=== PATIENT | female | born 1995 | race Caucasian/White ===

== ENCOUNTER 2022-10-07 12:14 | Outpatient (CLI) | payer OTHER, SELFPAY ==
--- NOTE | ~2022-10-07 | US_ITS ---
EXAMINATION: US breast RT limited HISTORY: Palpable lump in the upper outer quadrant of the right breast TECHNIQUE: Limited right breast ultrasound was performed. FINDINGS: There is no evidence of focal abnormal cystic or solid mass in the vicinity of the reported palpable abnormality of concern. IMPRESSION: No specific sonographic correlate is identified for the reported palpable abnormality of concern. Fur ther evaluation at this time should be based on clinical assessment. Continued follow-up physical exa mination is recommended. BI-RADS Category 1: Negative Reviewed, dictated and finalized at location A. IMPRESSION: No specific sonographic correlate is identified for the reported palpable abnor mality of concern. Further evaluation at this time should be based on clinical assessment. Continued follow-up physical examination is recommended. BI-RADS Category 1: Negative
== END 2022-10-07 12:15 | disposition home or self-care (01) ==
LOC: ANHIMG 12:21
PROVIDERS: Visit Provider Obstetrics & Gynecology Gynecology
DX: N63.10 Unspecified lump in the right breast, unspecified quadrant (principal)
CPT/HCPCS: 76642

== ENCOUNTER 2023-04-28 15:01 | Outpatient (CLI) | payer OTHER, SELFPAY ==
--- NOTE | ~2023-04-28 | US_ITS ---
EXAMINATION: US OB <=14 wk fetus w TV DATE: 04/28/2023 15:59 INDICATION: First trimester dating TECHNIQUE: Real-time pelvic transabdominal and transvaginal ultrasound was performed. COMPARISON: None. FINDINGS: The uterus measures 8.9 x 4.9 x 6.8 cm. There is an intrauterine gestational sac. A yolk sa c is identified. No definite pole is seen. The mean sac diameter measures 1.4 cm, which correla live with an estimated gestational age of 6 weeks and 1 day(s) (+/-) 3 day(s). The left ovary is not visualized however no left adnexal abnormality is seen. The right ovary measure s 2.1 x 1.1 cm. There is normal vascular flow in the right ovary. There is no free fluid in the pelvi s. IMPRESSION: 1. Intrauterine gestational sac with an estimated gestational age of 6 weeks and 1 day(s) (+/-) 3 day (s) and an estimated delivery date of 12/21/2023 based on mean sac diameter. No definite pole see n which could be due to early . Reviewed, dictated and finalized at location L. ETOLOGY TEACHER IMPRESSION: 1. Intrauterine gestational sac with an estimated gestational age of 6 weeks an d 1 day(s) (+/-) 3 day(s) and an estimated delivery date of 12/21/2023 based on m guillermo sac diameter. No definite pole seen which could be due to early pregn shun.
== END 2023-04-28 15:02 | disposition home or self-care (01) ==
PROVIDERS: Visit Provider Advanced Practice Midwife
DX: Z36.87 Encounter for antenatal screening for uncertain dates (principal); O36.80X0 Pregnancy with inconclusive fetal viability, not applicable or unspecified; Z3A.00 Weeks of gestation of pregnancy not specified
CPT/HCPCS: 76801; 76817

== ENCOUNTER 2023-05-05 09:57 | Outpatient (CLI) | payer OTHER, SELFPAY ==
--- NOTE | ~2023-05-05 | US_ITS ---
EXAMINATION: US OB <=14 wk fetus w TV DATE: 05/05/2023 11:28 INDICATION: Spotting during first trimester TECHNIQUE: Real-time pelvic ultrasound utilizing both a transvaginal and transabdominal probe was pe rformed. The interpreting radiologist was not present for the study. COMPARISON: 04/28/2023 FINDINGS: The uterus measures 7.2 x 4.6 x 5.2 cm. There is an intrauterine gestational sac. A yolk sac and fet al pole are identified. The crown rump length measures 3 mm, which correlates with an estimated gesta tional age of 5 weeks and 6 days. There is no discernible heart motion on the cine grayscale im aging. The right ovary measures 3.3 x 1.8 x 2.3 cm. The left ovary measures 2.5 x 1.3 x 1.9 cm. Vascular justina w seen on color Doppler in both ovaries including prominently at the periphery of a 1.8 cm corpus lut eum cyst in the right ovary. There is no free fluid in the pelvis. IMPRESSION: 1. Intrauterine with single 3 mm pole without discernible heart motion which em phasizes concerning for but not yet diagnostic of failed . The absence of cardiac acti vity 7 days following an initial scan with no embryo and the mean sac diameter of greater than or equ al to 12 mm (mean sac diameter 1.4 cm on 04/28/2023) would however fulfill a secondary ultrasound cri teria for diagnosis of failed . 2. Gestational age by ultrasound of 5 weeks 6 day(s) +/- 4 day(s) with ultrasound estimated date of delivery (TIMOTHY) of 12/30/2023. Reviewed, dictated and finalized at location A. ICAL PROGRAM MANAGER IMPRESSION: 1. Intrauterine with single 3 mm pole without discernible heart motion which emphasizes concerning for but not yet diagnostic of failed . The absence of cardiac activity 7 days following an initial sc an with no embryo and the mean sac diameter of greater than or equal to 12 mm ( mean sac diameter 1.4 cm on 04/28/2023) would however fulfill a secondary ultra sound criteria for diagnosis of failed . 2. Gestational age by ultrasound of 5 weeks 6 day(s) +/- 4 day(s) with ultraso und estimated date of delivery (TIMOTHY) of 12/30/2023.
== END 2023-05-05 09:58 | disposition home or self-care (01) ==
PROVIDERS: Visit Provider Obstetrics & Gynecology Gynecology
DX: O26.891 Other specified pregnancy related conditions, first trimester (principal); Z3A.00 Weeks of gestation of pregnancy not specified
CPT/HCPCS: 76801; 76817

== ENCOUNTER 2023-10-15 15:16 | Outpatient (CLI) | payer MEDICAID, SELFPAY ==
--- NOTE | ~2023-10-15 | US_ITS ---
EXAMINATION: US OB transvaginal INDICATION: History or SAB TECHNIQUE: Sonography of the pelvis was performed by transvaginal technique. COMPARISON: None. RESULT: Uterus: 9.3 x 5.6 x 6.5 cm. Anteverted. Homogenous myometrium. Intrauterine gestational sac: Single present. Yolk sac: 0.4 cm. Embryo: Single present. New Era rump length: 0.44 cm, corresponding gestational age 6 weeks, 1 days. Gestational heart rate: present 125 bpm. Subgestational hematoma: Absent . Right ovary: 3.1 x 1.8 x 3.0 cm. Vascular flow is present. No adnexal mass. Left ovary: 2.3 x 1.4 x 1.8 cm. Vascular flow is present. No adnexal mass. Pelvis free fluid: None. IMPRESSION: Single, live intrauterine gestation. Estimated Gestational Age: 6 weeks, 1 days by crown rump length. TIMOTHY by ultrasound 06/08/2024. Reviewed, dictated and finalized at location K. IMPRESSION: Single, live intrauterine gestation. Estimated Gestational Age: 6 weeks, 1 days by crown rump length. TIMOTHY by ultras ound 06/08/2024.
== END 2023-10-15 15:17 ==
PROVIDERS: PCP Obstetrics & Gynecology Gynecology; Visit Provider Obstetrics & Gynecology Gynecology
DX: O09.299 Supervision of pregnancy with other poor reproductive or obstetric history, unspecified trimester (principal); Z3A.01 Less than 8 weeks gestation of pregnancy
CPT/HCPCS: 76817

== ENCOUNTER 2024-01-07 15:30 | Outpatient (CLI) | payer OTHER, SELFPAY ==
--- NOTE | ~2024-01-07 | US_ITS ---
EXAMINATION: US OB /maternal detail DATE: 01/07/2024 16:36 INDICATION: anatomic survey. TECHNIQUE: Real-time ultrasound of the pelvis was performed. COMPARISON: Ultrasound 10/15/2023 FINDINGS: There is a single living fetus in variable presentation. The placenta is posterior, 2.4 cm from the cervix. heart rate is 141 beats per minute (bpm). The amniotic fluid index is 13.1 cm, which is normal. The following biometric data were obtained: Biparietal diameter (BPD): 4.1 cm; head circumference (HC): 16.0 cm; abdominal circumference (AC): 13 .3 cm; femur length (FL): 2.6 cm. These measurements are concordant. Estimated weight is 240 g +/- 36 g, which correlates with the 54th percentile when 06/07/24 is u sed as estimated date of delivery. As single measurements, these parameters are each equal to the following estimated gestational ages: BPD: 18 weeks 3 days. HC: 18 weeks 6 days. AC: 18 weeks 6 days. FL: 18 weeks 0 days. estimated gestational age based solely on measurements from this exam is 18 weeks 4 days +/- 1 weeks 2 days. The cerebral ventricles, cerebellum, cisterna magna, nuchal fold, and spine are normal. The heart is normal. The diaphragm, stomach, kidneys, and bladder are normal. There are two umbilical arteries to yield a 3-vessel cord. The cord insertion is normal. IMPRESSION: 1. Single living fetus in variable presentation. 2. Estimated weight is 240 g +/- 36 g, which correlates with the 54th percentile when 06/07/24 is used as estimated date of delivery. Note that estimated date of delivery based on the ultrasound f rom 10/15/2023 would be 06/08/2024. Reviewed, dictated and finalized at location A. IMPRESSION: 1. Single living fetus in variable presentation. 2. Estimated weight is 240 g +/- 36 g, which correlates with the 54th pe rcentile when 06/07/24 is used as estimated date of delivery. Note that estimate d date of delivery based on the ultrasound from 10/15/2023 would be 06/08/2024.
== END 2024-01-07 15:31 | disposition home or self-care (01) ==
LOC: ANHIMG 15:31
PROVIDERS: PCP Obstetrics & Gynecology Gynecology; Visit Provider Obstetrics & Gynecology Gynecology
DX: Z36.9 Encounter for antenatal screening, unspecified (principal); Z3A.18 18 weeks gestation of pregnancy
CPT/HCPCS: 76805

== ENCOUNTER 2024-03-15 15:12 | Outpatient (CLI) | payer OTHER, SELFPAY ==
--- NOTE | ~2024-03-15 | US_ITS ---
EXAMINATION: US OB follow up DATE: 03/15/2024 16:21 INDICATION: Low-lying placenta TECHNIQUE: Real-time ultrasound of the pelvis was performed. The interpreting radiologist was not pre sent for the study. COMPARISON: None. FINDINGS: There is a single living fetus in vertex presentation. The placenta is posterior and not low-lying w ith caudal margin 5.2 cm from the internal cervical os. Normal cervical length of 4.2 cm. heart rate is 137 beats per minute (bpm). The amniotic fluid index is 16.4 cm, which is normal (5th%-95%: 9.4-22.8 cm at 28 weeks estimated gestational age). The following biometric data were obtained: BPD: 7.3 cm -> 29 weeks 2 days Head circumference: 28.1 cm -> 30 weeks 6 days Abdominal circumference: 24.0 cm -> 28 weeks 2 days Femur length: 5.1 cm -> 27 weeks 2 days These measurements are concordant. Head circumference to abdominal circumference ratio: 1.17 (normal range 0.99-1.21). Estimated weight: 1195 g (+/-) 179 g or 2 lbs. 10 oz. (+/-) 6 oz. IMPRESSION: 1. Single living fetus in vertex presentation with heart rate of 137 bpm. 2. Normal amniotic fluid index of 16.4 cm. 3. Estimated weight is 46th percentile by Hadlock criteria when 06/07/2024 is used as the estima cathie date of delivery (TIMOTHY). Please correlate with clinical information or earlier ultrasounds for mos t accurate TIMOTHY. 4. Posterior placenta which is not low-lying with caudal margin 5.2 cm from the internal cervical os. Reviewed, dictated and finalized at location A. IMPRESSION: 1. Single living fetus in vertex presentation with heart rate of 137 bpm. 2. Normal amniotic fluid index of 16.4 cm. 3. Estimated weight is 46th percentile by Hadlock criteria when 06/07/2024 is used as the estimated date of delivery (TIMOTHY). Please correlate with clinica l information or earlier ultrasounds for most accurate TIMOTHY. 4. Posterior placenta which is not low-lying with caudal margin 5.2 cm from the internal cervical os.
== END 2024-03-15 15:13 | disposition home or self-care (01) ==
PROVIDERS: PCP Obstetrics & Gynecology Gynecology; Visit Provider Advanced Practice Midwife
DX: O44.43 Low lying placenta NOS or without hemorrhage, third trimester (principal); Z3A.00 Weeks of gestation of pregnancy not specified
CPT/HCPCS: 76816

== ENCOUNTER 2024-05-01 14:45 | Outpatient (CLI) | payer OTHER, SELFPAY ==
--- NOTE | ~2024-05-01 | US_ITS ---
EXAMINATION: US OB follow up DATE: 05/01/2024 17:27 INDICATION: Size greater than dates. TECHNIQUE: Real-time ultrasound of the pelvis was performed. COMPARISON: Ultrasound 03/15/2024, 10/15/2023 FINDINGS: There is a single living fetus in vertex presentation. The placenta is fundal and posterior. h eart rate is 163 beats per minute (bpm). The cervical length is 3.9 cm on transabdominal images, whic h is normal. The deepest vertical pocket is 7.2 cm which is normal. The following biometric data were obtained: Biparietal diameter (BPD): 8.8 cm; head circumference (HC): 31.8 cm; abdominal circumference (AC): 31 .2 cm; femur length (FL): 6.8 cm. These measurements are concordant. Estimated weight is 2627 g +/- 394 g, which correlates with the 62nd percentile when 06/07/24 is used as estimated date of delivery. As single measurements, these parameters are each equal to the following estimated gestational ages: BPD: 35 weeks 5 days. HC: 35 weeks 6 days. AC: 35 weeks 1 days. FL: 35 weeks 0 days. estimated gestational age based solely on measurements from this exam is 35 weeks 3 days +/- 2 weeks 3 days. IMPRESSION: 1. Single living fetus in vertex presentation. 2. Estimated weight is 2627 g +/- 394 g, which correlates with the 62nd percentile when 5 is used as estimated date of delivery. Note that estimated date of delivery based on the ultrasound from 10/15/2023 would be 06/08/2024. Reviewed, dictated and finalized at location A. PROFESSIONAL INTERPRETER IMPRESSION: 1. Single living fetus in vertex presentation. 2. Estimated weight is 2627 g +/- 394 g, which correlates with the 62nd percentile when 06/07/24 is used as estimated date of delivery. Note that estima cathie date of delivery based on the ultrasound from 10/15/2023 would be 06/08/2024.
== END 2024-05-01 14:46 | disposition home or self-care (01) ==
PROVIDERS: PCP Obstetrics & Gynecology Gynecology; Visit Provider Advanced Practice Midwife
DX: O36.63X0 Maternal care for excessive fetal growth, third trimester, not applicable or unspecified (principal); Z3A.35 35 weeks gestation of pregnancy
CPT/HCPCS: 76816

== ENCOUNTER 2024-05-23 23:41 | Inpatient (IN) | payer OTHER, SELFPAY ==
[2024-05-24] VITALS (160 sets, daily range): BP systolic 55–134; BP diastolic 22–83; PULSE 58–130; RESP 14–18; TEMP 36.4–36.8; O2SAT 92–100; BMI 39.0
[2024-05-24] MEDS: ONDANSETRON INJ 4 MG/2 ML VIAL IV PUSH (01:07)
[2024-05-24 01:12] LABS: Basophils Absolute Auto 0.1 K/mm3 (0.0-0.1); Basophils Percent Auto 0.5 % (0.2-1.2); Eosinophils Absolute Auto 0.2 K/mm3 (0-0.3); Eosinophils Percent Auto 1.3 % (0-4.4); Hematocrit 34.4 % (37.0-47.0); Hemoglobin 12.2 g/dL (12.0-15.0); Immature Granulocyte Absolute 0.17 K/mm3 (0.00-0.031); Immature Granulocyte Percent A 1.1 % (0-0.5); Lymphocytes Absolute Auto 4.44 K/mm3 (0.9-3.2); Lymphocytes Percent Auto 27.8 % (18.3-44.2); Mean Corpuscular HGB Conc 35.5 g/dl (32-36); Mean Corpuscular Hemoglobin 33.2 pg (26-34); Mean Corpuscular Volume 93.7 fl (80-100); Mean Platelet Volume 10.1 fl (7.4-10.4); Monocytes Absolute Auto 1.2 K/mm3 (0.1-0.6); Monocytes Percent Auto 7.5 % (2.6-8.5); Neutrophils Absolute Auto 9.9 K/mm3 (1.3-6.7); Neutrophils Percent Auto 61.8 % (45.5-73.1); Platelet Count Result 264 k/mm3 (150-375); Red Blood Count 3.67 M/mm3 (4.2-5.4); Red Cell Distribution Width 13.2 % (11.5-14.5)
--- NOTE | 2024-05-24 01:15 | LDADM ---
This patient, Alley Powell, was admitted to Labor/Delivery/Recovery 106 on 05/23/24 at 23:41. Plans for labor, pain management and were discussed with patient. Patient/family oriented to hospital policies and general routines including ID bracelet, bed and alarms, visiting hours, pain management, procedures, bathroom and other care routines, personal items, smoking policy, room service/diet and guest tray routines, infant security routines, and visiting hours. Patient/Family are encouraged to report perceived risks to care and to ask questions if they do not understand what they are told or what they should do. See OBIX for further documentation.
[2024-05-24 01:44] LABS: Rapid Plasma Reagin Non-Reactive (NonReactive)
[2024-05-24 02:04] LABS: HIV 1/2 Ab P24 Ag Result Negative (Negative)
[2024-05-24] MEDS: LACTATED RINGERS 1,000 ML 125 ML IV CONT ×2 (03:10→04:20)
[2024-05-24] MEDS: fentaNYL CITRATE INJ (*CRX) 100 MCG/2 ML VIAL 50 MCG IV PUSH (03:51)
--- NOTE | 2024-05-24 04:26 | WPDANESEPP ---
Anes - Eval Pre Procedure Procedure: labor pain management Date/Time: 05/24/24 04:26 Surgeon: Tl Preop Diagnosis: pain during labor Pre Op Diagnosis: Leaking, contractions Patient Data Age: 28 Gender: F Height: 1.6 m Weight: 100 kg Last Vital Signs Temp 97.6 F 05/24/24 04:20 Pulse 74 05/24/24 04:00 BP 103/58 L 05/24/24 04:00 Pulse Ox 99 05/24/24 04:23 O2 Del Method Room Air 05/24/24 01:12 Allergies Allergy/AdvReac Type Severity Reaction Status Date / Time No Known Allergies Allergy Verified 05/24/24 01:26 Home Medications ?Medication ?Instructions ?Recorded ?Confirmed ?Type cholecalciferol (vitamin D3) 125 5,000 unit PO DAILY 05/16/24 05/16/24 History mcg (5,000 unit) tablet (Vitamin D3) vit no.95-ferrous 1 tablet PO DAILY 05/16/24 05/16/24 History fumarate 28 mg-folic acid 800 mcg tablet () sertraline 50 mg tablet (Zoloft) 50 mg PO DAILY 05/16/24 05/16/24 History Laboratory Tests 05/24/24 00:33 WBC 16.0 H K/mm3 (4.5-10.0) RBC 3.67 L M/mm3 (4.2-5.4) Hgb 12.2 g/dL (12.0-15.0) Hct 34.4 L % (37.0-47.0) MCV 93.7 fl (80-100) MCH 33.2 pg (26-34) MCHC 35.5 g/dl (32-36) RDW 13.2 % (11.5-14.5) Plt Count 264 k/mm3 (150-375) MPV 10.1 fl (7.4-10.4) Immature Gran % (Auto) 1.1 H % (0-0.5) Neut % (Auto) 61.8 % (45.5-73.1) Lymph % (Auto) 27.8 % (18.3-44.2) Antelope % (Auto) 7.5 % (2.6-8.5) Eos % (Auto) 1.3 % (0-4.4) Baso % (Auto) 0.5 % (0.2-1.2) Lymph # (Auto) 4.44 H K/mm3 (0.9-3.2) Antelope # (Auto) 1.2 H K/mm3 (0.1-0.6) Eos # (Auto) 0.2 K/mm3 (0-0.3) Baso # (Auto) 0.1 K/mm3 (0.0-0.1) Abs Immat Gran (auto) 0.17 H K/mm3 (0.00-0.031) Absolute Neuts (auto) 9.9 H K/mm3 (1.3-6.7) Absolute Nucleated RBC 0.000 K/mm3 (0.0-0.012) Nucleated RBC % 0.0 % (0.0-0.2) RPR Non-reactive (NonReactive) HIV 1&2 Ab/P24 Ag 4thGn Negative (Negative) Blood Type A Positive Antibody Screen Negative Patient hx anesthesia problems: none Family hx anesthesia problems: none Prior surgeries: appy, tonsillectomy. per pt report: previous epidural required 3 attempts due to pt's scoliosis Results Review: All pre-operative results and documents have been reviewed as part of the pre-operative evaluation. [facility] Family History Family History Other No pertinent family history Social History Social History Smoking status: Never smoker Substance use: never Do You Feel Safe in your Home?: Yes Lack of Transportation: No Lack of Food: Never True Current Housing: I Have Housing Concerned About Future Housing: No Difficulty Paying Gas/Electric Bills: No Difficulty Paying for Meds: No Currently Unemployed: No Education: Associate Degree Difficulty w/ Childcare or Family Care: No Spiritual care concerns: No Exam Day of Procedure 05/24/24 04:26
[2024-05-24] MEDS: OXYTOCIN 30 UNITS/NS 500 ML 30 UNITS/500 ML BAG IV CONT (07:30)
--- NOTE | 2024-05-24 07:44 | WPDOBADMIT ---
Obstetrics - Admit Note Admission Note: record reviewed. No pertinent additions to the history and/or any subsequent changes in the physical findings that are not consistent with the expected course of the were found. Additions to the history and/or subsequent changes in the physical findings follow. Here with SROM in labor. Last check by RN 5 cm. Patient with epidural and was sleeping so I did not wake patient. FHTs Cat I.
--- NOTE | 2024-05-24 09:30 | PM.OBPRVD ---
OB - Vaginal Delivery Note Procedure Delivery date: 05/24/24 Induction method: None Delivery augmentation: Pitocin Delivery monitor: External FHT and External Uterine Route of delivery: Episiotomy description: None Laceration Description: Periurethral (clitoral wright) and Superficial Delivery repair: vicryl (3-0 on sh) Specimen: No Quantitative Blood Loss (ml): 50 Anesthesia type: Local Disposition: Floor Complications: No immediate complications Baby Date of : 05/24/24 Gestational Age by Date: 38 Infant gender: Male presentation: vertex position: Right Occiput Anterior Placenta delivery description: Spontaneous Cord Vessel Description: 3 Vessels and Delayed Cord Clamping score one minute: 8 score five minutes: 9
--- NOTE | 2024-05-24 09:31 | P.DS_ITS ---
DS: Admitting Diagnosis Discharge Date 05/25/24 Admitting Diagnosis IUP 38 wks SROM in labor DS: Discharge Diagnosis Discharge Diagnosis (1) (normal spontaneous vaginal delivery): Code(s): O80 - Encounter for full-term uncomplicated delivery Status: Acute OB - DS: Summary OB Procedures : Ultrasound OB Procedures Intrapartum: Spontaneous Vag Delivery OB Procedures: : None Peripartum Data Delivery Method: Natural Vaginal Laceration Description: Periurethral (clitoral wright) and Superficial Episiotomy description: None complications: none Status at Discharge Functional status at discharge: independent ambulation Overall status at discharge: patient is progressing back to baseline Time Spent with Patient Time attestation: Total time spent providing and/or coordinating discharge services: DS: Data Data Completed and Pending Labs on day of discharge: Labs from last 24 hours 05/24/24 00:33 WBC 16.0 H RBC 3.67 L Hgb 12.2 Hct 34.4 L MCV 93.7 MCH 33.2 MCHC 35.5 RDW 13.2 Plt Count 264 MPV 10.1 Immature Gran % (Auto) 1.1 H Neut % (Auto) 61.8 Lymph % (Auto) 27.8 Guthrie % (Auto) 7.5 Eos % (Auto) 1.3 Baso % (Auto) 0.5 Lymph # (Auto) 4.44 H Guthrie # (Auto) 1.2 H Eos # (Auto) 0.2 Baso # (Auto) 0.1 Abs Immat Gran (auto) 0.17 H Absolute Neuts (auto) 9.9 H Absolute Nucleated RBC 0.000 Nucleated RBC % 0.0 RPR Non-reactive HIV 1&2 Ab/P24 Ag 4thGn Negative Blood Type A Positive Antibody Screen Negative Discharge Plan Discharge Attending physician on discharge: Nury Boothe Discharging Clinician: uNry oBothe Anticipated Discharge Date/Time: 05/26/24 09:32 Patient Disposition: Home, Self-Care Activity: may shower and pelvic rest Diet: regular Patient Instructions: Antibiotic Form Patient Language: Palestinian Stand Alone Forms: General Discharge Information Follow-up/Referrals: Nury Boothe MD [Physician] - 6 Weeks Discharge Medications: New norethindrone (contraceptive) 0.35 mg tablet 0.35 mg PO DAILY Qty: 84 3RF Rx Instructions: start in 3 weeks Continued PNV cmb#95-ferrous fumarate-FA [] 28 mg iron- 800 mcg tablet 1 tablet PO DAILY cholecalciferol (vitamin D3) [Vitamin D3] 125 mcg (5,000 unit) tablet 5,000 unit PO DAILY sertraline [Zoloft] 50 mg tablet 50 mg PO DAILY Date of admission: 05/23/24 23:41 Primary Care Provider: UNKNOWN,DOCTOR Admitting Provider: Nury Boothe Attending physician on admission: uNry Boothe Condition: Stable
[2024-05-24] MEDS: OXYTOCIN 30 UNITS/NS 500 ML 30 UNITS/500 ML BAG 125 UNITS IV CONT (10:03)
[2024-05-24] MEDS: IBUPROFEN 600 MG TABLET PO ×2 (10:07→16:46)
--- NOTE | 2024-05-24 11:55 | PC.NURSE ---
Call received from Nursery RN for assistance with latch in Labor and Delivery. RN expressed that patient has flat, inverted nipples. Introductions were made, then consulted with patient to assess needs related to . Upon entering room, was swaddled and vigorously sucking on a pacifier. Mother stated that she had a nipple shield from home that she would like to try to use. Explained to mother that it is possible for infant to latch and maintain a feeding without a nipple shield with inverted nipples. After explaining this to pt, she would still like to attempt with a nipple shield. Mother is able to hand express drops of colostrum, nipple shield was placed on the left breast and was placed in the cross cradle position and latched optimally. Vigorous sucking noted as well as swallows. Mother agreed to remove the nipple shield and attempt to nurse infant without it. was able to latch to the left breast in cross cradle position and maintain for a 10 minute feeding.
[2024-05-24] MEDS: BENZOCAINE 20% AER SPR (*SP) 56 GM CAN 1 SPRAY TOPICAL (12:00)
[2024-05-24] MEDS: WITCH HAZEL 40 PADS 1 PAD TOPICAL (12:00)
--- NOTE | 2024-05-24 13:35 | OBPPTRN ---
Patient transferred to post room #288 via (wheelchair ). Support person present. Oriented to unit, room, information board, rooming in, admission packet and security measures. Patient verbalizes understanding.
[2024-05-24] MEDS: ACETAMINOPHEN 325 MG TABLET 650 MG PO ×2 (16:46→22:17)
[2024-05-24] MEDS: SERTRALINE HCL 50 MG TABLET PO (20:55)
[2024-05-24] MEDS: IBUPROFEN 600 MG TABLET (22:17)
[2024-05-25] MEDS: ACETAMINOPHEN 325 MG TABLET 650 MG PO ×2 (04:37→10:31)
[2024-05-25] MEDS: IBUPROFEN 600 MG TABLET PO ×2 (04:38→10:32)
[2024-05-25 06:20] LABS: Hematocrit 35.3 % (37.0-47.0); Hemoglobin 12.1 g/dL (12.0-15.0)
--- NOTE | 2024-05-25 07:52 | P.PNOB_ITS ---
OB - PN: Subj Subjective Date/time seen: 05/25/24 07:52 Patient comments: no complaints and pain well controlled baby status: doing well OB - PN: Obj Data Labs 05/25/24 04:29 Labs: Laboratory Results - last 24 hr 05/25/24 04:29 Hgb 12.1 Hct 35.3 L OB - PN A/P Plan day: 1 Plan: routine care, discharge home, follow up 6 weeks and other (micronor for bc) Time Spent With Patient Time: Total time spent is greater than 50% in coordination of care (as documented) at patient's floor/unit and/or counseling patient: Exam 2 : Bimanual exam- vagina & uterus: other (Uterus firm, nt @U)
--- NOTE | 2024-05-25 08:41 | PC.NURSE ---
Breast pump was provided overnight due to maternal request. Upon entering room, mother was pumping. Mother is able to pump 4-5 oz per pump session and intends to feed this to infant along with supplementation (Similac Sensitive). Flange size is appropriate and mother denies any pain or discomfort while pumping. Mother will call this RN for any questions or assistance with feedings.
[2024-05-25] MEDS: DOCUSATE SODIUM 100 MG CAPSULE PO (08:45)
[2024-05-25] MEDS: MULTIVIT/MIN/PREN/FOL AC/IRON TABLET 1 TAB PO (08:45)
[2024-05-25 09:13] VITALS: BP 111/75; PULSE 72; RESP 16; TEMP 36.4; O2SAT 99
--- NOTE | 2024-05-25 14:29 | WPDANLDPN2 ---
Anes-Prog Note L&D Date/Time: 05/25/24 14:29 Neuro status: Neuro function grossly intact. Vital Signs: Last Vital Signs Temp 36.4 C L 05/25/24 09:13 Pulse 72 05/25/24 09:13 Resp 16 05/25/24 09:13 BP 111/75 05/25/24 09:13 Pulse Ox 99 05/25/24 09:13 O2 Del Method Room Air 05/24/24 15:50 Pain score (VAS): 0 I/O: Intake & Output 05/24/24 05/25/24 05/25/24 23:59 07:59 15:59 Intake Total 200 Balance 200 Patient feedback: Patient satisfied with anesthetic care.
[2024-05-26 14:16] VITALS: BP 105/72; PULSE 78; RESP 18; TEMP 36.9; O2SAT 100
--- OUTSIDE RECORDS SUMMARY | 2024-05-31 00:14 | XMS_ITS | Encounter Summary ---
Author Organization [facility] Address [address] [place] [address]. [place], [place] [id number] [place] [id number] Care Team Providers Care Leak Patcher Name Role Phone Juli Montes MD Primary Care Provider [phone] Juli Montes MD Primary Care Provider [phone] Encounter Details Date Type Department Care Team (Late st Contact Info) Description 05/06/2012 Abstract [facility] [address] Naveed Woodall MD [address] [place] [address] Social History Tobacco Use Types Packs/Day Years Used Date Smoking Tobacco: Never Assessed Comments Unknown Sex and Gender Information Value Date Recorded Sex Assigned at Not on file Legal Sex Female 6:14 PM CDT Gender Identity Not on file Sexual Orientation Not on file documented as of this encounter Plan of Treatment Not on file documented as of this encounter Visit Diagnoses Diagnosis Examination Unspecified examination documented in this encounter Care Teams Leak Patcher Relationship Specialty Start Date End Date Juli Montes MD [address] [place] [address] PCP - General 03/13/12 08/16/12 Juli Montes MD [address] [address] PCP - General 08/17/12 07/07/21 documented as of this encounter
--- OUTSIDE RECORDS SUMMARY | 2024-05-31 00:14 | XMS_ITS | Encounter Summary ---
Author Organization [facility] Address [address] [place] [address]. [place], [place] [id number] [place] [id number] Care Team Providers Care Mill Operator Head Name Role Phone Juli Montes MD Primary Care Provider [phone] Juli Montes MD Primary Care Provider [phone] Encounter Details Date Type Department Care Team (Late st Contact Info) Description 10/23/2008 Abstract [place] [address] , Generic Conversion, Social History Tobacco Use Types Packs/Day Years Used Date Smoking Tobacco: Never Assessed Comments Unknown Sex and Gender Information Value Date Recorded Sex Assigned at Not on file Legal Sex Female 6:14 PM CDT Gender Identity Not on file Sexual Orientation Not on file documented as of this encounter Plan of Treatment Not on file documented as of this encounter Visit Diagnoses Not on filedocumented in this encounter Care Teams Mill Operator Head Relationship Specialty Start Date End Date Juli Montes MD [address] [place] [address] PCP - General 03/13/12 08/16/12 Juli Montes MD [address] [place] [address] PCP - General 08/17/12 07/07/21 documented as of this encounter
--- OUTSIDE RECORDS SUMMARY | 2024-05-31 00:14 | XMS_ITS | Encounter Summary ---
Author Organization [facility] Address [address] [place] [address]. [place], [place] [id number] [place] [id number] Care Team Providers Care Marshmallow Machine Operator Name Role Phone Juli Montes MD Primary Care Provider [phone] Juli Montes MD Primary Care Provider [phone] Encounter Details Date Type Department Care Team (Late st Contact Info) Description 03/13/2012 Abstract [facility] [address] [place] [address] Margaux Harper MD [address] [facility] [address] [place] [address] Social History Tobacco Use Types Packs/Day Years Used Date Smoking Tobacco: Never Assessed Comments Unknown Sex and Gender Information Value Date Recorded Sex Assigned at Not on file Legal Sex Female 6:14 PM CDT Gender Identity Not on file Sexual Orientation Not on file documented as of this encounter Plan of Treatment Not on file documented as of this encounter Visit Diagnoses Diagnosis Acute pharyngitis documented in this encounter Care Teams Marshmallow Machine Operator Relationship Specialty Start Date End Date Juli Montes MD [address] [place] [address] PCP - General 03/13/12 08/16/12 Juli Montes MD [address] [phone] PCP - General 08/17/12 07/07/21 documented as of this encounter
--- OUTSIDE RECORDS SUMMARY | 2024-05-31 00:14 | XMS_ITS | Encounter Summary ---
Author Organization [facility] Address [address] [place] [address]. [place], [place] [id number] [place] [address] Care Team Providers Care Field Superintendent Name Role Phone Juli Montes MD Primary Care Provider [phone] Encounter Details Date Type Department Care Team (Late st Contact Info) Description 08/17/[address] [facility] [address] [place], [place] [id number] Renate Dye, REGIONAL TELECOMMUNICATIONS SPECIALIST [address] [facility] [address] [place] [address] Social History Tobacco Use Types Packs/Day Years Used Date Smoking Tobacco: Never Assessed Comments Unknown Sex and Gender Information Value Date Recorded Sex Assigned at Not on file Legal Sex Female 6:14 PM CDT Gender Identity Not on file Sexual Orientation Not on file documented as of this encounter Plan of Treatment Not on file documented as of this encounter Visit Diagnoses Diagnosis Urinary tract infection Urinary tract infection, site not specified documented in this encounter Care Teams Field Superintendent Relationship Specialty Start Date End Date Juli Montes MD [address] [facility] [address] [place] [address] PCP - General 08/17/12 07/07/21 documented as of this encounter
--- OUTSIDE RECORDS SUMMARY | 2024-05-31 00:14 | XMS_ITS | Encounter Summary ---
Author Organization [facility] Address [address] [place] [address]. [place], [place] [id number] [place] [address] Care Team Providers Care Gill Tender Name Role Phone None, Provider Primary Care Provider Juli Burnham MD Unavailable Encounter Details Date Type Department Care Team (Latest Contact Info) Description 07/08/2021 Travel Social History Tobacco Use Types Packs/Day Years Used Date Smoking Tobacco: Never Assessed Comments Unknown Sex and Gender Information Value Date Recorded Sex Assigned at Not on file Legal Sex Female 6:14 PM CDT Gender Identity Not on file Sexual Orientation Not on file COVID-19 Exposure Response Date Recorded In the last 10 days, have yo u been in contact with someone who was confirmed or suspected to have Coronavirus/COVID-19? No / Unsure 07/08/2021 10:58 AM PAPERHANGER documented as of this encounter Plan of Treatment Not on file documented as of this encounter Visit Diagnoses Not on filedocumented in this encounter Care Teams Gill Tender Relationship Specialty Start Date End Date None, Provider, PCP - General 07/08/21 Juli Montes MD [address] [address] 07/08/21 documented as of this encounter
--- OUTSIDE RECORDS SUMMARY | 2024-05-31 00:14 | XMS_ITS | Encounter Summary ---
Author Organization [facility] Address [address] [place] [address]. [place], [place] [id number] [place] [address] Care Team Providers Care Pensionholder Information Clerk Name Role Phone None, Provider Primary Care Provider Juli Burnham MD Unavailable Encounter Details Date Type Department Care Team (Latest Contact Info) Description 07/08/2021 11:03 AM GENERAL OPERATIONS AGENT - 07/08/2021 11:04 AM GENERAL OPERATIONS AGENT Hospital Encounter [facility] Care [address] [place] [address] Jackie Souza, [facility] [address] [address] Discharge Disposition: Home or Self Care (Routine Discharge) Social History Tobacco Use Types Packs/Day Years [...] Coronavirus/COVID-19? No / Unsure 07/08/2021 10:58 AM GENERAL OPERATIONS AGENT documented as of this encounter ED Notes * Parisa Swanson RN - 07/08/2021 11:51 AM CST Downtime: see paper chart RAL OPERATIONS AGENT * Parisa Swanson RN - 07/08/2021 11:01 AM CST Downtime: See paper chart RAL OPERATIONS AGENT * CURLY Gurrola - 07/08/2021 10:59 AM CST Refer to downtime charting CURLY Gurrola 07/08/21 1059 RAL OPERATIONS AGENT documented in this encounter Plan of Treatment Not on file documented as of this encounter Visit Diagnoses Not on filedocumented in this encounter Active and Recently Administered Medications Care Teams Pensionholder Information Clerk Relationship Specialty Start Date End Date None, Provider, PCP - General 07/08/21 Juli Montes MD [address] [address] 07/08/21 documented as of this encounter
--- OUTSIDE RECORDS SUMMARY | 2024-05-31 00:14 | XMS_ITS | Clinical Summary ---
Author Organization [facility] Address [address] [place] [address]. [place], [place] [phone] [place] [address] Care Team Providers Care Forest Fire Officer Name Role Phone None, Provider Primary Care Provider Juli Burnham MD Unavailable Social History Tobacco Use Types Packs/Day Years Used Date Smoking Tobacco: Never Assessed Comments Unknown Sex and Gender Information Value Date Recorded Sex Assigned at Not on file Legal Sex Female 6:14 PM CDT Gender Identity Not on file Sexual Orientation Not on file Plan of Treatment Health Maintenance Due Date Last Done Comments Cervical Cancer Screening Pa p Smear (Age 21 to 29) Every 3 Years 1994 Cervical Cancer Screening 1994 Annual Physical 1997 Hepatitis C 2012 DTaP, Tdap and Td Vaccines ( 1 - Tdap) 2013 Hepatitis B Vaccines (1 of 3 - 19+ 3-dose series) 2013 COVID-19 Vaccine (2023-2 5 season) 2024 08/30/2020, 08/02/2020 Influenza Adult (#1) 2024 HPV Vaccines Aged Out No longer eligi ble based on patient's age to complete this topic Meningococcal Vaccine Aged Out No kia kamran eligible based on patient's age to complete this topic Pneumococcal Vaccine: Pediatrics (0 to 5 Years) and At-Risk Patients (6 to 64 Years) Aged Out No longer eligible b ased on patient's age to complete this topic RSV Immunizations Under 20 Months Aged Out No longer eligible b ased on patient's age to complete this topic Insurance [place] Care Teams Forest Fire Officer Relationship Specialty Start Date End Date None, Provider, PCP - General 07/08/21 Juli Montes MD [address] [address] 07/08/21
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
--- OUTSIDE RECORDS SUMMARY | 2024-05-31 00:15 | XMS_ITS | Data Portability ---
Author Organization [facility] [employer], [facility], Bypass Address [address] [place] [address] DR SHEA HALLIE [address] Care Team Providers Care Counter Dish Carrier Name Role Phone [facility] MEDICAL RECORDS Primary Care Provider Assessment No assessment recorded. Plan of Treatment Reminders Order Date Submit Date Provider Last Modified By Organization Details Last Modified Time Details Appointments None record ed. Lab None record ed. Referral None record ed. Procedures None record ed. Surgeries None record ed. Imaging None record ed. Medication Orders None record ed. Patient TargetsNo targets recorded. Patient Instructions Encounter Date Encounter Id Patient Instructions Last Modified By Organization Details Last Modified Time 09/29/2017 [id number] moles: care instructions tparrent Not available 09/29/2017 15:19:44 Reason for Referral None Reported. Problems No Known Problems Procedures Surgical History Date Name Laterality Status Provider Name and Address Organization Details Recorded Time [facility]end[facility] 15:09:10 Imaging Results None recorded. Procedure Notes None recorded. Medical Equipment None Reported. Allergies No known drug allergies Medications Not known to be on any medication Vitals None Recorded Social History Question Answer Notes LastModified by Organizat ion Details LastModified Time Tobacco Smoking Status Current Every Day Smoker Rito villegas [facility] 09/29/2017 15:08:56 What Is Your Level Of Alcohol Consumption? Moderate Information not available 09/29/2017 What Was The Date Of Your Most Recent Tobacco Screening? 09/29/2017 Information not available 12/08/2018 Sex: Unknown Functional Status None recorded. Mental Status None recorded. Family History Relationship Description Onset Age of this Age Resolved Age Notes LastModified by Organization Details LastModified Time Mother Malignant melanoma of skin melano ma, right arm- 2014 Not available 09/29/2017 15:08:49 Maternal Grandfather Myocardial infarction [email or web address] Not available 09/29 15:14:29 Medical History Condition Response Eczema, Hives or other skin conditions N Skin Cancer N Gynecological HistoryNo gynecological history recorded. Obstetrics History GPAL:G 0 P 0 0 0 0 Past Encounters Encounter ID Performer Location Encounter Start Date Encounter Closed Date Diagnosis/Indication Diagnosis SNOMED-CT Code Diagnosis ICD10 Code Diagnosis Note [id number] Ephraim Crowe MD [facility], Dermatolo gy [address] [place] [address] 09/29/2017 14:48:32 09/29/2017 15:37:28 Melanocytic nevus 661554562 D22.39 -Benign appearing nevi evaluated on exam -Reassuran ce provided to patient -No treatment indicated unless lesions change or become symptomati c Neoplasm of skin 5247989 04 D48.5 -Referral for Health Concerns Section Related Observation LastModified by Organization Detai ls LastModified Time None Recorded Concern Status LastModified by Organization Details LastModified Time None Recorded Advance Directives Directive None Recorded Payers Encounter Date Sequence Insurance Name Policy Number Policy Urias Covered Member ID Urias Member ID Guarantor Name 09/29/2017 1 [facility] () Alley Powell [id number] Alley Powell Notes Date Note Type Note Provider Name and Address Organization Details Recorded Time 09/29/2017 text/html 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 Helped/Failed?: no prior tx Problem:skin lesion Location:right side of scalp Quality:flat, smooth, dark brown color to the area Mild/Moderate/S evere:mild itching Days/Weeks/Getachew hs/Years:2 months Intermittent/Co nstant:constant Treatments tried? Helped/Failed?: no prior tx No personal hx of skin cancer/eczema. She does have a family hx of melanoma (Mother- right arm, 2014). Ephraim Crowe MD [address] [place] [address], [id number], [facility] 09/29/2017 15:20:21 OBGyn Episode No OBEpisode recorded.
--- OUTSIDE RECORDS SUMMARY | 2024-05-31 00:15 | XMS_ITS | Referral Summary ---
Author Organization [facility] Address [address] [place] [address] Care Team Providers Care Orthodontist Small Business Owner Name Role Phone No, Physician Primary Care Provider [phone] Encounters Date Type Department Care Team Description 04/23/2024 1:13 PM KENNEL ASSISTANT - 04/23/2024 2:19 PM [facility] Emergency [facility] OB Emergency Department [address] [place] [address] Natalya Pratt MD Back pain affecting in third trimester (Primary Dx); 34 weeks gestation of Discharge Disposition: Discharge to home or self care from Last 3 Months Allergies No known active allergies Medications ketorolac (TORADOL) 10 mg tablet Take 1 tablet (10 mg total) by mouth every 6 (six) hours as needed for pain 20 tablet 01/02/2022 Active HYDROcodone-ananda taminophen (NORCO) 5-325 mg per tabletIndicatio ns:Pain Take 1 tablet by mouth every 6 (six) hours as needed for pain 4 tablet 01/02/2022 Active albuterol HFA (PROVENTIL HFA,VENTOLIN HFA,PROAIR HFA) 90 mcg/actuation inhalerIndicati ons:Acute Asthma Attack Inhale 2 puffs every 4 (four) hours as needed for wheezing 6.7 g 02/27/2024 Active Social History Tobacco Use Types Packs/Day Years Used Date Smoking Tobacco: Never Assessed Social Connection and Isolat ion Panel [NHANES] Answer Date Recorded In a typical week, how many times do you talk on the phone with family, friends, or neighbors? More than three times a week 04/23/2024 How often do you get togethe r with friends or relatives? More than three times a week 04/23/2024 How often do you attend chur ch or evangelical services? Patient declined 04/23/2024 Do you belong to any clubs o r organizations such as anabaptist groups, unions, fraternal or athletic groups, or school groups? Patient declined 04/23/2024 How often do you attend meet ings of the clubs or organizations you belong to? Patient declined 04/23/2024 Are you , , di vorced, , never , or living with a partner? Patient declined 04/23/2024 Overall Financial Resource Strain (CARDIA) Answe r Date Recorded How hard is it for you to pa y for the very basics like food, housing, medical care, and heating? Not hard at all 04/23/2024 Hunger Vital Sign Answer Date Recorded Within the past 12 months, y ou worried that your food would run out before you got the money to buy more. Never true 04/23/20 24 Within the past 12 months, t he food you bought just didn't last and you didn't have money to get more. Never true 04/23/2024 PRAPARE - Transportation Answer Date Re corded In the past 12 months, has l ack of transportation kept you from medical appointments or from getting medications? No 12/2023 In the past 12 months, has l ack of transportation kept you from meetings, work, or from getting things needed for daily living? No 04/23/2024 Housing Stability Vital Sign Answer Davian e Recorded In the last 12 months, was t here a time when you were not able to pay the mortgage or rent on time? No 04/23/2024 Number of Times Moved in the Last Year Not on fi le 04/23/2024 At any time in the past 12 m [facility], were you homeless or living in a long-term (including now)? No 04/23/2024 Personal Safety Answer Date Recorded Have you ever been in or are you currently in a harmful physical or emotional relationship or is someone making you feel afraid or unsafe? Denies 02/27/2024 Estimated Date of Delivery Comme nts Yes 05/31/2024 Sex and Gender Information Value Date Recorded Sex Assigned at Not on file Legal Sex Female 6:10 PM KENNEL ASSISTANT Gender Identity Not on file Sexual Orientation Not on file Last Filed Vital Signs Vital Sign Reading Time Taken Comments Blood Pressure 105/66 04/23/2024 1:21 PM KENNEL ASSISTANT Pulse 74 04/23/2024 1:25 PM KENNEL ASSISTANT Temperature 36.4 ??C (97.6 ??F) 04/23/2024 1:19 PM CS T Respiratory Rate 18 04/23/2024 1:19 PM KENNEL ASSISTANT Oxygen Saturation 97% 04/23/2024 1:25 PM KENNEL ASSISTANT Inhaled Oxygen Concentration - - Weight 90.8 kg (200 lb 2.8 oz) 02/27/2024 3:03 P M CDT Height 160 cm (5' 3 ) 01/02/2022 10:17 AM CDT Body Mass Index 35.46 01/02/2022 10:17 AM CDT Plan of Treatment Not on file Procedures Procedure Name Priority Date/Time Associated Diagnosis Comments LIPASE STAT 04/23/2024 1:29 PM KENNEL ASSISTANT EGFR STAT 04/23/2024 1:29 PM KENNEL ASSISTANT DIFFERENTIAL AUTO STAT 04/23/2024 1:2 9 PM KENNEL ASSISTANT COMPREHENSIVE METABOLIC PANEL STAT 04/23/2024 1:29 PM KENNEL ASSISTANT CBC WITH AUTO DIFFERENTIAL STAT 04/23/2024 1:29 PM KENNEL ASSISTANT URINALYSIS AND REFLEX TO MICROSCOPIC AND CULTURE STAT 04/23/2024 1:29 PM KENNEL ASSISTANT from Last 3 Months Results * eGFR (04/23/2024 1:29 PM KENNEL ASSISTANT) eGFR >90 >=60 mL/min/1. 73 m2 Comment: Interpretive Data Reference Interval Normal ?>/= 90 mL/min/1.73m2 Mildly decreased* ? 60 - 89 mL/min/1.73m2 Mildly to moderately decreased ?45 - 59 mL/min/1.73m2 Moderately to severely decreased ??30 - 44 mL/min/1.73m2 Severely decreased ?15 - 29 mL/min/1.73m2 Kidney Failure ?< 15 ??mL/min/1.73m2 *Relative to young adult level Estimated glomerular filtration rate is determined by the 2020 CKD-EPI equation recommended by the National Kidney Foundation (A Unifying Approach to GFR Estimation: Recommendations of the NKF-ASK Task Force on Reassessing the Inclusion of Race in Diagnosing Kidney Disease, JASN 2020). The CKD-EPI equation should not be used for patients with unstable renal function and has not been validated in children and those over 70. Current interpretive data was last reviewed 2021. Testing performed by: [address] [address] Blood 04/23/2024 1:29 PM KENNEL ASSISTANT 04/23/2024 1:33 PM KENNEL ASSISTANT us Horace Rainey MD LAB BLOOD ORDERABLES Final Result Performing Organization Address City/State/[facility] Co de Phone Number [facility] [address] [facility] Department [place] [address] * Differential, auto (04/23/2024 1:29 PM KENNEL ASSISTANT) Neutrophil abs 5.9 1.5 - 6.5 K/cumm Comment:Testing performed by : [address] [address] Imm gran abs 0.1 0.0 - 0.1 K/cumm JAIR SANON Comment:Testing performed by : [address] [address] Lymphocyte abs 2.5 0.8 - 3.3 K/cumm JAIR Comment:Testing performed by : [address] [address] Monocyte abs 0.6 0.2 - 0.8 K/cumm JAIR Comment:Testing performed by : [address] [address] Eosinophil abs 0.1 0.0 - 0.5 K/cumm JAIR Comment:Testing performed by : [address] [address] Basophil abs 0.0 0.0 - 0.1 K/cumm [facility] Comment:Testing performed by : [address] [address] Neutrophil pct 64.3 % [facility] Comment: Interpretive Data Percent cell count reference ranges are not reported, since discordance with absolute values may lead to misinterpretation of CBC data. Current Interpretive Data was last revised on 2017. Testing performed by: [address] [address] Imm gran pct 0.7 % [facility] Comment: Interpretive Data Percent cell count reference ranges are not reported, since discordance with absolute values may lead to misinterpretation of CBC data. Current Interpretive Data was last revised on 2017. Testing performed by: [address] [address] Lymphocyte pct 27.6 % [facility] Comment: Interpretive Data Percent cell count reference ranges are not reported, since discordance with absolute values may lead to misinterpretation of CBC data. Current Interpretive Data was last revised on 2017. Testing performed by: [address] [address] Monocyte pct 6.2 % [facility] Comment: Interpretive Data Percent cell count reference ranges are not reported, since discordance with absolute values may lead to misinterpretation of CBC data. Current Interpretive Data was last revised on 2017. Testing performed by: [address] [address] Eosinophil pct 0.9 % [facility] Comment: Interpretive Data Percent cell count reference ranges are not reported, since discordance with absolute values may lead to misinterpretation of CBC data. Current Interpretive Data was last revised on 2017. Testing performed by: [address] [address] Basophil pct 0.3 % JAIR SANON Comment: Interpretive Data Percent cell count reference ranges are not reported, since discordance with absolute values may lead to misinterpretation of CBC data. Current Interpretive Data was last revised on 2017. Testing performed by: [address] [address] Blood 04/23/2024 1:29 PM KENNEL ASSISTANT 04/23/2024 1:33 PM KENNEL ASSISTANT us Horace Rainey MD LAB BLOOD ORDERABLES Final Result JAIR SANON [address] [facility] Department [place] [address] * Urinalysis reflex to microscopic and culture Urine (04/23/2024 1:29 PM KENNEL ASSISTANT) Color, ur Straw Yellow Comment:Testing performed by : [address] [address] Clarity, ur Clear Clear JAIR SANON Comment:Testing performed by : [address] [address] Specific gravity, ur 1.004 1.003 - 1.030 JAIR SAONN Comment:Testing performed by : [address] [address] pH, urine 7.0 JAIR SANON Comment: Interpretive Data ? Urine pH is affected by diet, medications, systemic acid-base disturbances, and renal tubular function. ??pH may affect urinary stone formation. ??For example, urine pH below 6.0 may help reduce the tendency for calcium phosphate stones and pH greater than 6.0 may reduce the tendency for uric acid stone formation. Source: [facility] Current Interpretive Data was last revised on 2017 Testing performed by: [address] [address] Protein, ur ql Negative Negative JAIR SANON Comment:Testing performed by : [address] [address] Glucose, ur ql Negative Negative JAIR SANON Comment:Testing performed by : [address], [place]., [address] Ketones, ur Negative Negative JAIR SANON Comment:Testing performed by : [address], [place]., [address] Bilirubin, ur Negative Negative JAIR SANON Comment:Testing performed by : [address], [place]., [address] Blood, ur Negative Negative JAIR Comment:Testing performed by : [address], [place]., [address] Urobilinogen, ur <2.0 <2.0 mg/dL JAIR SANON Comment:Testing performed by : [address], [place]., [address] Nitrite, ur Negative Negative JAIR SANON Comment:Testing performed by : [address], [place]., [address] Leukocyte esterase, ur Negative Negative JAIR Comment:Testing performed by : [address] [address] UA reflex comment Reflex conditions for microscopic UA and culture not met. JAIR SANON Comment:Testing performed by : [address] [address] Urine 04/23/2024 1:29 PM KENNEL ASSISTANT 04/23/2024 1:33 PM KENNEL ASSISTANT us Horace Rainey MD LAB MICROBIOLOGY - GENERAL ORDERABLES Final Result JAIR [address] [facility] Department [place] [address] * (ABNORMAL) CBC with auto differential (04/23/2024 1:29 PM KENNEL ASSISTANT) WBC 9.1 3.8 - 9.9 K/cumm Comment:Testing performed by : [address] [address] Hgb 11.5(L) 11.9 - 15.5 g/dL JAIR SANON Comment:Testing performed by : [address] [address] Hct 32.2(L) 35.6 - 45.5 % JAIR Comment:Testing performed by : [address], [address] Plt 251 150 - 400 K/cumm JAIR Comment:Testing performed by : [address] [address] MPV 9.6 9.1 - 12.3 fL JAIR Comment:Testing performed by : [address], [address] RBC 3.47(L) 3.90 - 5.20 M/cumm JAIR Comment:Testing performed by : [address], [address] MCV 92.8 81.3 - 96.4 fL JAIR Comment:Testing performed by : [address], [address] MCH 33.1 27.1 - 33.3 pg JAIR Comment:Testing performed by : [address], [address] MCHC 35.7 32.3 - 35.7 g/dL JAIR Comment:Testing performed by : [address], [address] RDW CV 13.3 11.1 - 14.9 % JAIR Comment:Testing performed by : [address], [address] RDW SD 45.1 35.7 - 48.1 fL JAIR Comment:Testing performed by : [address], [address] NRBC abs 0.00 0.00 - 0.01 K/cumm JAIR Comment:Testing performed by : [address] [address] Blood 04/23/2024 1:29 PM KENNEL ASSISTANT 04/23/2024 1:33 PM KENNEL ASSISTANT us Horace Rainey MD LAB BLOOD ORDERABLES Final Result JAIR [facility] Department [place] [address] * Lipase (04/23/2024 1:29 PM KENNEL ASSISTANT) Lipase 22 10 - 99 Units/L Comment:Testing performed by : [address] [address] Blood 04/23/2024 1:29 PM KENNEL ASSISTANT 04/23/2024 1:33 PM KENNEL ASSISTANT us Natalya Pratt MD LAB BLOOD ORDERABLES Final Resu lt JAIR [facility] [place] [address] * (ABNORMAL) Comprehensive metabolic panel (04/23/2024 1:29 PM KENNEL ASSISTANT) Pathologist [facility] Sodium 137 135 - 145 mmol/L Comment:Testing performed by : [address] [address] Potassium, pl 4.0 3.3 - 4.9 mmol/L JAIR Comment:Testing performed by : [address] [address] Chloride 106 97 - 110 mmol/L JAIR Comment:Testing performed by : [address] [address] CO2 20(L) 22 - 32 mmol/L JAIR Comment:Testing performed by : [address] [address] Anion gap 11 2 - 15 mmol/L JAIR Comment:Testing performed by : [address] [address] BUN 8 6 - 25 mg/dL JAIR Comment:Testing performed by : [address] [address] Creatinine 0.40(L) 0.60 - 1.10 mg/dL JAIR Comment:Testing performed by : [address] [address] Glucose 97 70 - 199 mg/dL JAIR Comment: Interpretive Data Fasting glucose >/= 126 mg/dl is diagnostic for diabetes. ?? Fasting is defined as no caloric intake for at least 8 hours. Fasting glucose between 100 mg/dl to 125 mg/dl is diagnostic of prediabetes. In a patient with classic symptoms of hyperglycemia or hyperglycemic crisis, a random glucose >/= 200 mg/dl is diagnostic for diabetes. In the absence of unequivocal hyperglycemia, results should be confirmed by repeat testing. The classification and Diagnosis of Diabetes Diabetes Care 202; 46: S19-S40. Current interpretive data was last revised 2022. Testing performed by: [address] [address] Calcium 8.8 8.5 - 10.3 mg/dL JAIR Comment:Testing performed by : [address] [address] Bilirubin, total <0.2 0.1 - 1.2 mg/dL JAIR Comment:Testing performed by : [address] [address] Protein, pl 6.0(L) 6.5 - 8.5 g/dL [facility] Comment:Testing performed by : [address] [address] Albumin 3.3(L) 3.5 - 5.0 g/dL [facility] Comment:Testing performed by : [address] [address] Alk phos 72 40 - 130 Units/L JAIR Comment:Testing performed by : [address] [address] ALT 10 7 - 45 Units/L [facility] Comment:Testing performed by : [address] [address] AST 15 10 - 45 Units/L JAIR Comment:Testing performed by : [address] [address] Blood 04/23/2024 1:29 PM KENNEL ASSISTANT 04/23/2024 1:33 PM KENNEL ASSISTANT us Horace Rainey MD LAB BLOOD ORDERABLES Final Result JAIR [facility] [address] [facility] Department [place] [address] from Last 3 Months Insurance [facility] Care Teams Orthodontist Small Business Owner Relationship Specialty Start Date End Date No, Physician PCP - General 03/19/20
--- OUTSIDE RECORDS SUMMARY | 2024-05-31 00:15 | XMS_ITS | Encounter Summary ---
Author Organization [facility] Address [address] [place] [address] Care Team Providers Care Stone Derrickman And Rigger Name Role Phone Unavailable Primary Care Provider Unavailabl e Encounter Details Date Type Department Care Team (Late st Contact Info) Description 06/27/2020 Lab Requisition [facility] Community Testing [facility] [address] [place] [address] Pancho Ontiveros MD [address] [place] [address] [address] [place], [place] [id number] Social History Tobacco Use Types Packs/Day Years Used Date Smoking Tobacco: Never Assessed Comments Unknown Sex and Gender Information Value Date Recorded Sex Assigned at Not on file Legal Sex Female 10:02 AM OUTER DIAM[employer]ER [employer] Gender Identity Not on file Sexual Orientation Not on file documented as of this encounter Plan of Treatment Not on file documented as of this encounter Procedures Procedure Name Priority Date/Time Associated Diagnosis Comments SARS-COV-2 PCR [facility] ONLY Routine 06/27/2020 10:07 AM OUTER DIAMETER GR[employer]ER TOOL documented in this encounter Visit Diagnoses Not on filedocumented in this encounter
--- OUTSIDE RECORDS SUMMARY | 2024-05-31 00:15 | XMS_ITS | Encounter Summary ---
Author Organization [facility] Healthcare Address [address] [place] [address] Care Team Providers Care Church Secretary Name Role Phone No, Physician Primary Care Provider [phone] Reason for Visit * Reason Comments Cough Shortness of Breath Encounter Details Date Type Department Care Team (Late st Contact Info) Description 02/27/2024 4:10 PM CDT - 02/27/2024 6:06 PM CDT Emergency [facility] Emergency Department [address], [place] [id number] Smith Macario MD [address] [place] [id number] Upper respiratory tract infection, unspecified type (Primary Dx) Discharge Disposition: Discharge to home or self care Social History Tobacco Use Types Packs/Day Years Used Date Smoking Tobacco: Never Assessed Personal Safety Answer Date Recorded Have you ever been in or are you currently in a harmful physical or emotional relationship or is someone making you feel afraid or unsafe? 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 Gender Identity Not on file Sexual Orientation Not on file documented as of this encounter Last Filed Vital Signs Vital Sign Reading Time Taken Comments Blood Pressure 120/80 02/27/2024 6:05 PM CDT Pulse 75 02/27/2024 6:05 PM CDT Temperature 37.1 ??C (98.8 ??F) 02/27/2024 3:03 PM CD T Respiratory Rate 18 02/27/2024 6:05 PM CDT Oxygen Saturation 100% 02/27/2024 6:05 PM CDT Inhaled Oxygen Concentration - - Weight 90.8 kg (200 lb 2.8 oz) 02/27/2024 3:03 P M CDT Height - - Body Mass Index 35.46 01/02/2022 10:17 AM CDT documented in this encounter Discharge Instructions * Discharge Instructions* Nadege Rod PA - 02/27/2024 5:48 PM CDT Please call your OB tomorrow. Safe Medications During Nasal congestion/Colds/Allergies/[place] mist nasal spray, Sudafed (PE is fine if no history of hypertension), Tylenol cold/sinus preparation, Guaifenesin, Hytuss, Mucinex, Benadryl, Dayquil, Claritin, Vicks Cough: Mucinex, Robitussin (plain or DM), Vicks 44, Cough drops, Humidifier, Elevate head of bed at night to help sleeping, Increase water intake documented in this encounter Medications at Time of Discharge albuterol HFA (PROVENTIL HFA,VENTOLIN HFA,PROAIR HFA) 90 mcg/actuation inhalerIndication s:Acute Asthma Attack Inhale 2 puffs every 4 (four) hours as needed for wheezing 6.7 g 02/27/2024 HYDROcodone-aceta minophen (NORCO) 5-325 mg per tabletIndications [...] Refills Last Filled Start Date End Date albuterol HFA (PROVENTIL HFA,VENTOLIN HFA,PROAIR HFA) 90 mcg/actuation inhalerIndications :Acute Asthma Attack Inhale 2 puffs every 4 (four) hours as needed for wheezing 6.7 g 02/27/2024 documented in this encounter Discharge Disposition Disposition Code Departure Means Destination Comment s Discharge to home or self care documented in this encounter ED Notes * Nadege Rod PA - 02/27/2024 4:18 PM CDT ED NOTE Chief Complaint Chief Complaint Patient presents with Cough Shortness of Breath History of Present Illness The patient is a 28 y.o. female who presents for evaluation of upper respiratory symptoms x1 week. Patient was 26 weeks . Denies abdominal pain or vaginal bleeding. Reports movement. Reports dry cough, congestion. She went to urgent care last week and was told to use Mucinex and Flonase. Now is reporting some shortness of breath. Denies fever. Medical History ALLERGIES: No Known Allergies MEDICATIONS: Prior to Admission medications Medication Sig Start Date End Date Taking? Authorizing Provider HYDROcodone-acetaminophen (NORCO) 5-325 mg per tablet Take 1 tablet by mouth every 6 (six) hours asneeded for pain 01/02/22 Natalya Frances PA ketorolac (TORADOL) 10 mg tablet Take 1 tablet (10 mg total) by mouth every 6 (six) hours as neededfor pain 01/02/22 Natalya Frances PA PAST MEDICAL HISTORY: No past medical history on file. PAST SURGICAL HISTORY: No past surgical history on file. FAMILY HISTORY: No family history on file. SOCIAL HISTORY: Social History Tobacco Use Smoking status: Not on file Smokeless tobacco: Not on file Substance and Sexual Activity Drug use: Not on file Sexual activity: Not on file Alcohol Use: Not on file Review of Systems All systems reviewed and are neg or non contributory for this patients presentation today other than as stated in the HPI . Physical Exam BP 120/80 Pulse 75 Temp 37.1 ??C (98.8 ??F) (Oral) Resp 18 Wt 90.8 kg (200 lb 2.8 oz) SpO2 100% BMI 35.46 kg/m?? Physical Exam Vitals and nursing note reviewed. Constitutional: Appearance: Normal appearance. Eyes: Conjunctiva/sclera: Conjunctivae normal. Cardiovascular: Rate and Rhythm: Normal rate and regular rhythm. Pulses: Normal pulses. Heart sounds: Normal heart sounds. Pulmonary: Effort: Pulmonary effort is normal. Comments: Coarse breath sounds throughout Abdominal: Palpations: Abdomen is soft. Musculoskeletal: General: Normal range of motion. Cervical back: Normal range of motion and neck supple. Skin: General: Skin is warm. Capillary Refill: Capillary refill takes less than 2 seconds. Neurological: General: No focal deficit present. Mental Status: She is alert. Psychiatric: Mood and Affect: Mood normal. Diagnostic Studies / Procedures LABORATORY STUDIES: Labs Reviewed INFLUENZA A/B, RSV, AND COVID-19 PCR Result Value COVID-19 RNA Negative Influenza A RNA Negative Influenza B RNA Negative RSV RNA Negative Narrative: Is the Patient experiencing symptoms consistent with COVID?->Yes IMAGING STUDIES: XR Chest 1 Vw Portable Final Result No results found. Procedures ED Course / Medical Decision Making MDM Number of Diagnoses or Management Options Upper respiratory tract infection, unspecified type Diagnosis management comments: DDX includes: COVID, influenza, URI, viral syndrome, pneumonia, bronchitis Patient who is 26 weeks presents with upper respiratory symptoms x1 week. Vital signs stable. Viral panel is negative. Chest x-ray with no evidence of pneumonia. Suspect symptoms are viral in nature. We will plan for discharge with albuterol inhaler and [id number] medications safe for . Recommend she call OB tomorrow for further recommendations. Strict verbal return precautions reviewed. Patient expresses verbal understanding and agreement with plan. All questions answered to the best of my ability. Nontoxic exit exam. Patient discharged home in stable condition. Amount and/or Complexity of Data Reviewed Clinical lab tests: ordered and reviewed Tests in the radiology section of CPT??: ordered and reviewed Medications albuterol HFA (PROVENTIL HFA,VENTOLIN HFA,PROAIR HFA) 90 mcg/actuation inhaler 2 puff (2 puffs inhalation Given 02/27/24 1321) Diagnoses that have been ruled out: None Diagnoses that are still under consideration: None Final diagnoses: Upper respiratory tract infection, unspecified type Disposition: DISPOSITION: Home Follow-Up: No follow-up provider specified. MANFRED Meng 02/27/2024 Nadege Rod PA 02/27/24 [id number] Cosigned by Smith Macario MD at 02/28/2024 6:18 PM CDT Associated attestation - Smith Macario MD - 02/28/2024 6:18 PM CDT ED Attestation This patient was seen independently by the [facility]. I was available for consultation but not directly involved in their care. * Nury Womack RN - 02/27/2024 3:06 PM CDT Pt presents to ED for report of dry cough, congestion, and shortness of breath x one week. Pt reports she went to urgent care one week ago and tested negative for covid/flu/strep. She reports she hasbeen taking mucinex/flonase for symptoms with no relief. Pt is also reported 26 weeks . [facility] called; states we will see pt in medical ED and they will come down to monitor pt if needed. documented in this encounter Plan of Treatment Not on file documented as of this encounter Procedures Procedure Name Priority Date/Time Associated Diagnosis Comments XR CHEST 1 VIEW ED 02/27/2024 5:01 PM CDT INFLUENZA A/B, RSV, AND COVID-19 PCR Routine 02/27/2024 3:12 PM CDT documented in this encounter Results * XR Chest 1 Vw Portable (02/27/2024 5:01 PM CDT) Anatomical Region Laterality Modality Body, Chest N/A Computed Radiogr aphy 02/27/2024 5:31 PM CDT Narrative 02/27/2024 5:32 PM CDT EXAM DESCRIPTION: ?? XR CHEST 1 VIEW REASON FOR STUDY: ?? Shortness of Breath today TECHNIQUE: ??Single-view COMPARISON: ??None available FINDINGS: Central vascularity have normal caliber. ??Aortic arch well-defined on the left. Lungs are well expanded without consolidation, effusion or pneumothorax. IMPRESSION: No acute findings. THIS IS AN ELECTRONICALLY VERIFIED FINAL REPORT 02/27/2024 5:32 PM - Electronically signed by ??Shar Holland M.D. RB: RB D: ??02/27/2024 5:32 PM T: ??02/27/2024 5:32 PM Report ID: [id number] Reading Location: ??[id number] Procedure Note Shar Holland MD - 02/27/2024 EXAM DESCRIPTION: XR CHEST 1 VIEW REASON FOR STUDY: Shortness of Breath today TECHNIQUE: Single-view COMPARISON: None available FINDINGS: Central vascularity have normal caliber. Aortic arch well-defined on theleft. Lungs are well expanded without consolidation, effusion or pneumothorax. IMPRESSION: No acute findings. THIS IS AN ELECTRONICALLY VERIFIED FINAL REPORT 02/27/2024 5:32 PM - Electronically signed by Shar Holland M.D. RB: RB Report ID: [id number] Reading Location: [id number] Nadege SHEARER IM XR PROCEDURES Final Resul t * Influenza A/B, RSV, and COVID-19 PCR Nasopharyngeal (02/27/2024 3:12 PM CDT) COVID-19 RNA Negative Negative Comment:Testing performed by : [address] [address] Influenza A RNA Negative Negative [facility] Comment:Testing performed by : [address] [address] Influenza B RNA Negative Negative [facility] Comment:Testing performed by : [address] [address] RSV RNA Negative Negative [facility] Comment: Interpretive data: Testing performed by [facility]. This test is performed using the [employer] Xpress CoV-2/Flu/RSV plus assay. This is a multiplex, real-time reverse transcriptase PCR assay intended for the qualitative detection of nucleic acid from SARS-CoV-2, influenza A, influenza B, and respiratory syncytial virus. This assay has been cleared by the [place] Food and Drug administration. The performance characteristics have been verified by the [facility]. ??Results must be considered in the clinical context, and a negative result does not rule out infection. Interpretive Data last revised 2023 Testing performed by: [facility], [address] [place] [address]., [id number] Nasopharyngeal 02/27/2024 3: 12 PM CDT 02/27/2024 3:19 PM CDT Narrative JAIR - 02/27/2024 4:00 PM CDT Is the Patient experiencing symptoms consistent with COVID?->Yes us Ian Du MD LAB MICROBIOLOGY - GEN ERAL ORDERABLES Final Result JAIR [address] [facility] Department [place] [address] documented in this encounter Visit Diagnoses Diagnosis Upper respiratory tract infection, unspecified type- Primary documented in this encounter Administered Medications Inactive Administered Medications - up to 3 most recent administrations Medication Order MAR Action Action Date Dose Rate Site albuterol HFA (PROVENTIL HFA,VENTOLIN HFA,PROAIR HFA) 90 mcg/actuation inhaler 2 puff 2 puff, inhalation, Once (therapist respiratory), On 02/27/24 at 1638, For 1 dose Given 02/27/2024 4:51 PM CDT 2 puffs documented in this encounter Active and Recently Administered Medications Times are shown in CDT. Scheduled Medication Order 02/25/2024 02/26/2024 02/27/2024 albuterol HFA (PROVENTIL HFA,VENTOLIN HFA,PROAIR HFA) 90 mcg/actuation inhaler 2 puff (COMPLETED) 2 puff, inhalation, Once (therapist respiratory), On 02/27/24 at 1638, For 1 dose 1651 (Given - Provid er: Carole Diggs, LEATHER DRESSER) documented in this encounter Orders Medications Ordered That Tian ht Not Have Been Administered Count Last Ordered Date First Ordered Date albuterol HFA (PROVENTIL HFA ,VENTOLIN HFA,PROAIR HFA) 90 mcg/actuation inhaler 2 puff 1 02/27/2024 documented in this encounter Care Teams Church Secretary Relationship Specialty Start Date End Date No, Physician PCP - General 03/19/20 documented as of this encounter
--- OUTSIDE RECORDS SUMMARY | 2024-05-31 00:15 | XMS_ITS | Clinical Summary ---
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 Gender Identity Not on file Sexual Orientation Not on file Plan of Treatment Health Maintenance Due Date Last Done Comments Hepatitis C Virus (HCV) Screening 1994 TdaP Immunization 1994 Hepatitis B Immunization (1 of 3 - 19+ 3-dose series) 2013 Pap Smear 09/04/2015 Influenza Immunization (#1) 2024 SARS-COV-2 Immunization ( - season) 2024 Respiratory Syncytial Virus (RSV) Immunization (Adult) (1 - 1-dose 75+ series) 2069 Meningococcal Immunization (ACWY) Aged Out No longer eligible based on patient's age to complete this topic Pneumococcal Immunization Combined Aged Out No longer eligible based on patient's age to complete this topic Rotavirus Immunization Aged Out No lo nger eligible based on patient's age to complete this topic
--- OUTSIDE RECORDS SUMMARY | 2024-05-31 00:15 | XMS_ITS | Encounter Summary ---
Author Organization [facility] Address [address] [place] [id number] Care Team Providers Care Administrative Assistant Name Role Phone Unavailable Primary Care Provider Unavailabl e Encounter Details Date Type Department Care Team (Late st Contact Info) Description 06/27/2020 10:15 AM TECHNOLOGY PROJECT MANAGER Rapid Evaluation [facility] Testing [address] [address] Social History Tobacco Use Types Packs/Day Years Used Date Smoking Tobacco: Never Assessed Comments Unknown Sex and Gender Information Value Date Recorded Sex Assigned at Not on file Legal Sex Female 10:02 AM TECHNOLOGY PROJECT MANAGER Gender Identity Not on file Sexual Orientation Not on file documented as of this encounter Plan of Treatment Not on file documented as of this encounter Visit Diagnoses Not on filedocumented in this encounter
--- OUTSIDE RECORDS SUMMARY | 2024-05-31 00:15 | XMS_ITS | Encounter Summary ---
Author Organization [facility] Healthcare Address [address] [place] [address] Care Team Providers Care Photo Tech Name Role Phone No, Physician Primary Care Provider [phone] Reason for Visit * Reason Comments Contractions Right Upper back margaux n Encounter Details Date Type Department Care Team (Late st Contact Info) Description 04/23/2024 1:13 PM MANAGER BASKETBALL - 04/23/2024 2:19 PM R[facility] OB Emergency Department [address] [place] [address] Natalya Pratt MD [address] [place], [place] [id number] Back pain affecting in third trimester (Primary [...] often do you attend chur ch or uatsdin services? Patient declined 04/23/2024 Do you belong to any clubs o r organizations such as moravian groups, unions, fraternal or athletic groups, or [...] any time in the past 12 m [facility], were you homeless or living in a prison (including now)? No 04/23/2024 Personal Safety Answer Date Recorded Have you ever been in or are you currently in a harmful physical or emotional relationship or is someone making you feel afraid or unsafe? Denies 02/27/2024 Estimated Date of Delivery Comme nts Yes 05/31/2024 Sex and Gender Information Value Date Recorded Sex Assigned at Not on file Legal Sex Female 6:10 PM MANAGER BASKETBALL Gender Identity Not on file Sexual Orientation Not on file documented as of this encounter Last Filed Vital Signs Vital Sign Reading Time Taken Comments Blood Pressure 105/66 04/23/2024 1:21 PM MANAGER BASKETBALL Pulse 74 04/23/2024 1:25 PM MANAGER BASKETBALL Temperature 36.4 ??C (97.6 ??F) 04/23/2024 1:19 PM CS T Respiratory Rate 18 04/23/2024 1:19 PM MANAGER BASKETBALL Oxygen Saturation 97% 04/23/2024 1:25 PM MANAGER BASKETBALL Inhaled Oxygen Concentration - - Weight - - Height - - Body Mass Index - - documented in this encounter Discharge Instructions * Attachments The following attachments cannot be sent through Care Everywhere. * at 31 to 34 Weeks (Discharge Care) (Cambodian) documented in this encounter Medications at Time [...] tablet 01/02/2022 documented as of this encounter Discharge Disposition Disposition Code Departure Means Destination Comment s Discharge to home or self care Other documented in this encounter Nursing Notes * Melanie Meyer RN - 04/23/2024 2:09 PM CST Pt arrived to the [facility] for upper right back pain and complaints of occasional contractions. Labs were sent and were unremarkable. EFM was category 1 with 3 contractions on the monitor and no decels. Pt has an appointment scheduled this week with her provider Tl and will follow up at that time.She verbalized understanding of discharge instructions and when to return to the [facility]. GER BASKETBALL documented in this encounter ED Notes * Horace Rainey MD - 04/23/2024 1:32 PM CST HPI Chief Complaint Patient presents with Contractions Right Upper back pain 28 y/o @ 34w4d presents to [facility] with complaints of right back pain that comes and goes. Patient reports she has been having the pain for weeks. She states she has tried tylenol 2 extra strength once a day at bedtime, massage and heating pad. She reports some nausea. She has not had vomiting. She denies urinary symptoms or bowel changes. No vaginal bleeding or change in discharge. She reportsfetal movement and rare contraction. She also reports some itching on her feet. She denies complications this or prior . She reports FM. Patient History: There are no active problems to display for this patient. No past medical history on file. No past surgical history on file. No family history on file. Social History Tobacco Use Smoking status: Not on file Smokeless tobacco: Not on file Substance and Sexual Activity Alcohol use: Not on file Drug use: Not on file Sexual activity: Not on file Social History Social History Narrative Not on file Review of Systems Review of Systems Constitutional: Negative for appetite change and fever. HENT: Negative. Respiratory: Negative. Cardiovascular: Negative. Gastrointestinal: Negative. Genitourinary: Negative. Neurological: Negative. Physical Exam ED Triage Vitals [04/23/24 1319] Temp Pulse Resp BP SpO2 36.4 ??C (97.6 ??F) 80 18 105/66 98 % Temp src Heart Rate Source Patient Position BP Location FiO2 (%) Oral -- -- -- -- Height Height Method Weight Weight Method -- -- -- -- Heart Rate Mode: US transducer Doppler/Fetoscope Rate: 143 BPM Physical Exam Constitutional: Appearance: Normal appearance. Cardiovascular: Rate and Rhythm: Normal rate and regular rhythm. Pulses: Normal pulses. Heart sounds: Normal heart sounds. Pulmonary: Effort: Pulmonary effort is normal. Breath sounds: Normal breath sounds. No stridor. Abdominal: General: Bowel sounds are normal. Palpations: Abdomen is soft. Comments: Gravid nontender, no epigastric pain, no RUQ pain. Musculoskeletal: Right lower leg: No edema. Left lower leg: No edema. Neurological: Mental Status: She is oriented to person, place, and time. MDM Medical Decision Making Right Back pain most likely musculoskeletal r/o cholecystitis vs pancreatitis, vs pyelonephritis vspreterm labor . Afebrile, normal WBC and UA CMP and lipase pending. FWB- category 1 tracing and rare contraction. Amount and/or Complexity of Data Reviewed Labs: ordered. Decision-making details documented in ED Course. Critical Care Total time providing critical care: 15 minutes Labs Reviewed CBC WITH AUTO DIFFERENTIAL - Abnormal Result Value WBC 9.1 Hgb 11.5 (*) Hct 32.2 (*) Plt 251 MPV 9.6 RBC 3.47 (*) MCV 92.8 MCH 33.1 MCHC 35.7 RDW CV 13.3 RDW SD 45.1 NRBC abs 0.00 URINALYSIS AND REFLEX TO MICROSCOPIC AND CULTURE Color, ur Straw Clarity, ur Clear Specific gravity, ur 1.004 pH, urine 7.0 Protein, ur ql Negative Glucose, ur ql Negative Ketones, ur Negative Bilirubin, ur Negative Blood, ur Negative Urobilinogen, ur <2.0 Nitrite, ur Negative Leukocyte esterase, ur Negative UA reflex comment Value: Reflex conditions for microscopic UA and culture not met. DIFFERENTIAL AUTO Neutrophil abs 5.9 Imm gran abs 0.1 Lymphocyte abs 2.5 Monocyte abs 0.6 Eosinophil abs 0.1 Basophil abs 0.0 Neutrophil pct 64.3 Imm gran pct 0.7 Lymphocyte pct 27.6 Monocyte pct 6.2 Eosinophil pct 0.9 Basophil pct 0.3 COMPREHENSIVE METABOLIC PANEL LIPASE ED Course as of 04/23/24 1355 Time: 04/23 1336 Value: Comprehensive metabolic panel Comment: (Reviewed) By: Horace Rainey MD Final diagnoses: Back pain affecting in third trimester Horace Rainey MD 04/23/24 1403 GER BASKETBALL documented in this encounter Plan of Treatment Pending Results Name Type Priority Associated Diagnoses Date /Time Lipase Lab STAT 04/23/2024 1:2 9 PM MANAGER BASKETBALL Scheduled Orders Name Type Priority Associated Diagnoses Orde r Schedule Lipase Lab STAT Once for 1 Occ urrences starting 04/23/2024 until 04/23/2024 documented as of this encounter Procedures Procedure Name Priority Date/Time Associated Diagnosis Comments EGFR STAT 04/23/2024 1:29 PM MANAGER BASKETBALL DIFFERENTIAL AUTO STAT 04/23/2024 1:2 9 PM MANAGER BASKETBALL URINALYSIS AND REFLEX TO MICROSCOPIC AND CULTURE STAT 04/23/2024 1:29 PM MANAGER BASKETBALL CBC WITH AUTO DIFFERENTIAL STAT 04/23/2024 1:29 PM MANAGER BASKETBALL LIPASE STAT 04/23/2024 1:29 PM MANAGER BASKETBALL COMPREHENSIVE METABOLIC PANEL STAT 04/23/2024 1:29 PM MANAGER BASKETBALL documented in this encounter Results * Lipase (04/23/2024 1:29 PM MANAGER BASKETBALL) Pathologist [facility] Lipase 22 10 - 99 Units/L Comment:Testing performed by : [facility], [address] [place] [address]., [id number] Blood 04/23/2024 1:29 PM MANAGER BASKETBALL 04/23/2024 1:33 PM MANAGER BASKETBALL us Natalya Pratt MD LAB BLOOD ORDERABLES Final [facility] [address] [facility] Department [place] [address] * eGFR (04/23/2024 1:29 PM MANAGER BASKETBALL) eGFR >90 >=60 mL/min/1. 73 m2 Comment: [...] was last reviewed 2021. Testing performed by: [address] [address] Blood 04/23/2024 1:29 PM MANAGER BASKETBALL 04/23/2024 1:33 PM MANAGER BASKETBALL us Horace Rainey MD LAB BLOOD ORDERABLES Final Result [facility] [address] [facility] [place] [address] * Differential, auto (04/23/2024 1:29 PM MANAGER BASKETBALL) Neutrophil abs 5.9 1.5 - 6.5 K/cumm Comment:Testing performed by : [address] [address] Imm gran abs 0.1 0.0 - 0.1 K/cumm JAIR Comment:Testing performed by : [address] [address] Lymphocyte abs 2.5 0.8 - 3.3 K/cumm JAIR Comment:Testing performed by : [address] [address] Monocyte abs 0.6 0.2 - 0.8 K/cumm JAIR Comment:Testing performed by : [address] [address] Eosinophil abs 0.1 0.0 - 0.5 K/cumm JAIR Comment:Testing performed by : [address] [address] Basophil abs 0.0 0.0 - 0.1 K/cumm JAIR Comment:Testing performed by : [address] [address] Neutrophil pct 64.3 % JAIR Comment: Interpretive Data Percent cell count reference ranges are not reported, since discordance with absolute values may lead to misinterpretation of CBC data. Current Interpretive Data was last revised on 2017. Testing performed by: [address] [address] Imm gran pct 0.7 % [facility] Comment: Interpretive Data Percent cell count reference ranges are not reported, since discordance with absolute values may lead to misinterpretation of CBC data. Current Interpretive Data was last revised on 2017. Testing performed by: [address] [address] Lymphocyte pct 27.6 % [facility] Comment: Interpretive Data Percent cell count reference ranges are not reported, since discordance with absolute values may lead to misinterpretation of CBC data. Current Interpretive Data was last revised on 2017. Testing performed by: [address] [address] Monocyte pct 6.2 % [facility] Comment: Interpretive Data Percent cell count reference ranges are not reported, since discordance with absolute values may lead to misinterpretation of CBC data. Current Interpretive Data was last revised on 2017. Testing performed by: [address] [address] Eosinophil pct 0.9 % [facility] Comment: Interpretive Data Percent cell count reference ranges are not reported, since discordance with absolute values may lead to misinterpretation of CBC data. Current Interpretive Data was last revised on 2017. Testing performed by: [address] [address] Basophil pct 0.3 % [facility] Comment: Interpretive Data Percent cell count reference ranges are not reported, since discordance with absolute values may lead to misinterpretation of CBC data. Current Interpretive Data was last revised on 2017. Testing performed by: [address] [address] Blood 04/23/2024 1:29 PM MANAGER BASKETBALL 04/23/2024 1:33 PM MANAGER BASKETBALL us Horace Rainey MD LAB BLOOD ORDERABLES Final Result [facility] [address] [facility] [place] [address] * (ABNORMAL) Comprehensive metabolic panel (04/23/2024 1:29 PM MANAGER BASKETBALL) Sodium 137 135 - 145 mmol/L Comment:Testing performed by : [address] [address] Potassium, pl 4.0 3.3 - 4.9 mmol/L JAIR Comment:Testing performed by : [address] [address] Chloride 106 97 - 110 mmol/L JAIR Comment:Testing performed by : [address] [address] CO2 20(L) 22 - 32 mmol/L JAIR Comment:Testing performed by : [address] [address] Anion gap 11 2 - 15 mmol/L JAIR Comment:Testing performed by : [address] [address] BUN 8 6 - 25 mg/dL JAIR Comment:Testing performed by : [address] [address] Creatinine 0.40(L) 0.60 - 1.10 mg/dL JAIR Comment:Testing performed by : [address] [address] Glucose 97 70 - 199 mg/dL JAIR [...] was last revised 2022. Testing performed by: [address] [address] Calcium 8.8 8.5 - 10.3 mg/dL JAIR Comment:Testing performed by : [address] [address] Bilirubin, total <0.2 0.1 - 1.2 mg/dL JAIR Comment:Testing performed by : [address] [address] Protein, pl 6.0(L) 6.5 - 8.5 g/dL JAIR Comment:Testing performed by : [address] [address] Albumin 3.3(L) 3.5 - 5.0 g/dL JAIR Comment:Testing performed by : [address] [address] Alk phos 72 40 - 130 Units/L JAIR Comment:Testing performed by : [address] [address] ALT 10 7 - 45 Units/L JAIR Comment:Testing performed by : [address] [address] AST 15 10 - 45 Units/L JAIR Comment:Testing performed by : [address] [address] Blood 04/23/2024 1:29 PM MANAGER BASKETBALL 04/23/2024 1:33 PM MANAGER BASKETBALL us Horace Rainey MD LAB BLOOD ORDERABLES Final Result [facility] [address] [facility] Department [place] [address] * (ABNORMAL) CBC with auto differential (04/23/2024 1:29 PM MANAGER BASKETBALL) WBC 9.1 3.8 - 9.9 K/cumm Comment:Testing performed by : [address] [address] Hgb 11.5(L) 11.9 - 15.5 g/dL JAIR Comment:Testing performed by : [address], [address] Hct 32.2(L) 35.6 - 45.5 % JAIR Comment:Testing performed by : [address] [address] Plt 251 150 - 400 K/cumm JAIR Comment:Testing performed by : [address], [address] MPV 9.6 9.1 - 12.3 fL JAIR Comment:Testing performed by : [address], [address] RBC 3.47(L) 3.90 - 5.20 M/cumm JAIR Comment:Testing performed by : [address], [address] MCV 92.8 81.3 - 96.4 fL JAIR Comment:Testing performed by : [address], [address] MCH 33.1 27.1 - 33.3 pg JAIR Comment:Testing performed by : [address], [address] MCHC 35.7 32.3 - 35.7 g/dL JAIR Comment:Testing performed by : [address], [address] RDW CV 13.3 11.1 - 14.9 % JAIR Comment:Testing performed by : [address], [address] RDW SD 45.1 35.7 - 48.1 fL JAIR Comment:Testing performed by : [address], [address] NRBC abs 0.00 0.00 - 0.01 K/cumm JAIR Comment:Testing performed by : [address], [address] Blood 04/23/2024 1:29 PM MANAGER BASKETBALL 04/23/2024 1:33 PM MANAGER BASKETBALL us Horace Rainey MD LAB BLOOD ORDERABLES Final Result [facility] [address] [facility] Department [place] [address] * Urinalysis reflex to microscopic and culture Urine (04/23/2024 1:29 PM MANAGER BASKETBALL) Color, ur Straw Yellow Comment:Testing performed by : [address] [address] Clarity, ur Clear Clear JAIR Comment:Testing performed by : [address] [address] Specific gravity, ur 1.004 1.003 - 1.030 JAIR Comment:Testing performed by : [address] [address] pH, urine 7.0 JAIR Comment: Interpretive Data ? Urine pH is affected by diet, medications, systemic acid-base disturbances, and renal tubular function. ??pH may affect urinary stone formation. ??For example, urine pH below 6.0 may help reduce the tendency for calcium phosphate stones and pH greater than 6.0 may reduce the tendency for uric acid stone formation. Source: [facility] [employer] Current Interpretive Data was last revised on 2017 Testing performed by: [address] [address] Protein, ur ql Negative Negative JAIR Comment:Testing performed by : [address] [address] Glucose, ur ql Negative Negative JAIR Comment:Testing performed by : [address] [address] Ketones, ur Negative Negative JAIR SANON Comment:Testing performed by : [address] [address] Bilirubin, ur Negative Negative JAIR Comment:Testing performed by : [address] [address] Blood, ur Negative Negative JAIR SANON Comment:Testing performed by : [address] [address] Urobilinogen, ur <2.0 <2.0 mg/dL JAIR SANON Comment:Testing performed by : [address] [address] Nitrite, ur Negative Negative JAIR SANON Comment:Testing performed by : [address] [address] Leukocyte esterase, ur Negative Negative JAIR SANON Comment:Testing performed by : [address] [address] UA reflex comment Reflex conditions for microscopic UA and culture not met. JAIR SANON Comment:Testing performed by : [facility], [address] [place] [address]., [address] Urine 04/23/2024 1:29 PM MANAGER BASKETBALL 04/23/2024 1:33 PM MANAGER BASKETBALL us Horace Rainey MD LAB MICROBIOLOGY - GENERAL ORDERABLES Final Result Performing Organization Address City/State/[facility] Co de Phone Number JAIR [phone] [facility] [place] [address] documented in this encounter Visit Diagnoses Diagnosis Back pain affecting in third trimester- Primary 34 weeks gestation of documented in this encounter Care Teams Photo Tech Relationship Specialty Start Date End Date No, Physician PCP - General 03/19/20 documented as of this encounter
--- OUTSIDE RECORDS SUMMARY | 2024-05-31 00:15 | XMS_ITS | Encounter Summary ---
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 Dies Name Role Phone Unavailable Primary Care Provider Unavailabl e Encounter Details Date Type Department Care Team (Latest Contact Info) Description 07/24/2013 2:22 PM CDT - 07/25/2013 5:20 PM CDT Hospital Encounter [facility] IP Juli Montes MD [address] [address] Acute appendicitis; Other specified retention of urine Social History Tobacco Use Types Packs/Day Years Used Date Smoking Tobacco: Never Assessed Comments Unknown Sex and Gender Information Value Date Recorded Sex Assigned at Not on file 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 Gender Identity Not on file Sexual Orientation Not on file documented as of this encounter Last Filed Vital Signs Vital Sign Reading Time Taken Comments Blood Pressure 88/52 07/24/2013 4:45 PM CDT Pulse 72 07/24/2013 4:45 PM CDT Temperature 36.6 ??C (97.8 ??F) 07/24/2013 4:45 PM CD T Respiratory Rate - - Oxygen Saturation 96% 07/24/2013 4:45 PM CDT Inhaled Oxygen Concentration - - Weight 63.7 kg (140 lb 6 oz) 07/24/2013 4:45 PM CDT Height - - Body Mass Index - - documented in this encounter Plan of Treatment Not on file documented as of this encounter Procedures Procedure Name Priority Date/Time Associated Diagnosis Comments SCAN - PATHOLOGY 07/26/2013 12:0 0 AM CDT OXYGEN SATURATION, ARTERIAL Routine 07/25/2013 12:03 PM CDT HCG, BLOOD, QUANTITATIVE Routine 07/24/2013 4:10 PM CDT COMPREHENSIVE METABOLIC PANEL Routine 07/24/2013 2:00 PM CDT CBC WITH AUTO DIFFERENTIAL Routine 07/24/2013 1:59 PM CDT ERYTHROCYTE SEDIMENTATION RATE Routine 07/24/2013 1:[address] ABDOMEN PELVIS W CONTRAST Routine 07/24/2013 12:47 PM CDT documented in this encounter Results * SCAN - PATHOLOGY (07/26/2013 12:00 AM CDT) Narrative 07/26/2013 12:00 AM CDT Ordered by an unspecified provider. us Historical Provider Final Res ult * Oxygen saturation, arterial (07/25/2013 12:03 PM CDT) Specimen Type Oximeter 07/25/2013 12:06 PM CDT [facility] HISTORICAL RESULTS Puncture Site FINGER 07/25/2013 12:06 PM CDT [facility]ISTOR[facility] RESULTS O2 Sat Pulse Oximetry 97.0 >=90.0 % 07/25/2013 12:06 PM CDT [facility] HISTORICAL RESULTS FiO2 21.0 % 07/25/2013 12:06 PM CDT [facility] HISTORICAL RESULTS [employer] Glass ID ARK 07/25/2013 12:06 PM CDT [facility] HISTORICAL RESULTS 07/25/2013 12:0 3 PM CDT 07/25/2013 12:06 PM CDT us Juli Montes MD LAB BLOOD ORDERABLES Final Resul t [facility] HISTORICAL RESULTS * hCG, blood, quantitative (07/24/2013 4:10 PM CDT) Beta HCG, Quant < 0.1 0.0 - 1.0 mIU/mL 07/24/2013 4:49 PM CDT [facility] HISTORICAL RESULTS Comment: Weeks of preg ?BHCG ? Weeks of preg ? BHCG ?3 ? 5.8-71.2 ?10 ? 46,509-186,977 ?4 ? 9.5-750 ? 12 ? 27,832-210,612 ?5 ? 217-7,138 ? 14 ? 13,950-62,530 ?6 ? 158-31,795 ?15 ? 12,039-70,971 ?7 ?3,697-163,563 ?16 ?9,040-56,451 ?8 ? 32,065-149,571 ?17 ?8,175-55,868 ?9 ? 63,803-151,410 ?18 ?8,099-58,176 Post-menopause: ??0-8.3 ?METHOD: ??Will ECLIA Intended for the early detection of . ? 07/24/2013 4:10 PM CDT 07/24/2013 4:12 PM CDT us Akash Cao MD LAB BLOOD ORDERABLES Final Re sult [facility] HISTORICAL RESULTS * Comprehensive metabolic panel (07/24/2013 2:00 PM CDT) Sodium 136 135 - 145 mmol/L 07/24/2013 2:35 PM CDT [facility]ISTORICAL RESULTS Potassium 3.9 3.3 - 5.1 mmol/L 07/24/2013 2:35 PM CDT [facility]ISTORICAL RESULTS Chloride 103 96 - 108 mmol/L 07/24/2013 2:35 PM T [facility]ISTORICAL RESULTS Carbon Dioxide 23 22 - 32 mmol/L 07/24/2013 2:35 PM T [facility]ISTOR[facility] RESULTS Anion Gap 10 7 - 16 07/24/2013 2:35 PM T [facility]ISTOR[facility] RESULTS Glucose 89 70 - 110 mg/dL 07/24/2013 2:35 PM T [facility]ISTORICAL RESULTS BUN 8 6 - 20 mg/dL 07/24/2013 2:35 PM T [facility]ISTOR[facility] RESULTS Creatinine 0.8 0.5 - 1.1 mg/dL 07/24/2013 2:35 PM T [facility]ISTORICAL RESULTS Kidney Disease Stage > 90 mL/MIN 07/24/2013 2:35 PM T [facility]OR[facility] RESULTS Comment: NOTE; ??The GFR is an estimated value using the creatinine, sex, age, and race of the patient. THE ESTIMATED GFR IS VALIDATED FOR AGES 18-70 YEARS STAGE ?mL/Min ?DESCRIPTION ??1 ?90 mL/min or more ?Normal or elevated GFR ??2 ? 60-89 mL/min ?Mildly decreased GFR ??3 ? 30-59 mL/min ?Moderately decreased GFR ??4 ? 15-29 mL/min ?Severely decreased GFR ??5 ? <15 mL/min ? Kidney failure or on dialysis @ Calcium 9.5 8.6 - 10.2 mg/dL 07/24/2013 2:35 PM T [facility]ISTORICAL RESULTS Comment: Reporting units changed on 03-02-2013 from mmol/L to mg/dL. Compare to previous results with caution. Total Protein 7.3 6.4 - 8.4 g/dL 07/24/2013 2:35 PM T [facility] HISTORICAL RESULTS Albumin 4.3 3.5 - 5.2 g/dL 07/24/2013 2:35 PM T [facility]ISTORICAL RESULTS Globulin 3.0 2.3 - 3.5 gm/dL 07/24/2013 2:35 PM T [facility] HISTORICAL RESULTS Albumin/Globulin Ratio 1.4 1.1 - 1.8 07/24/2013 2:35 PM T [facility]ISTORICAL RESULTS Total Bilirubin 0.5 0.0 - 1.2 mg/dL 07/24/2013 2:35 PM T [facility]ISTORICAL RESULTS AST 14 0 - 32 U/L 07/24/2013 2:35 PM T [facility]ISTORICAL RESULTS ALT 11 0 - 31 U/L 07/24/2013 2:35 PM T [facility]ISTORICAL RESULTS Alkaline Phosphatase 48 35 - 104 U/L 07/24/2013 2:35 PM T [facility]ISTORICAL RESULTS 07/24/2013 2:00 PM CDT 07/24/2013 2:01 PM CDT us Juli Montes MD LAB BLOOD ORDERABLES Final Resul t [facility]ISTORICAL RESULTS * (ABNORMAL) Erythrocyte sedimentation rate (07/24/2013 1:59 PM CDT) ESR 12(H) 0 - 10 mm/hr 07/24/2013 2:45 PM T [facility] HISTORICAL RESULTS 07/24/2013 1:59 PM CDT 07/24/2013 2:01 PM CDT us Juli Montes MD LAB BLOOD ORDERABLES Final Resul t [facility]ISTORICAL RESULTS * (ABNORMAL) CBC with auto differential (07/24/2013 1:59 PM CDT) WBC 6.8 4.6 - 10.2 x10 3/ul 07/24/2013 2:07 PM CDT [facility] HISTORICAL RESULTS RBC 4.44 3.76 - 4.80 x10 6/ul 07/24/2013 2:07 PM CDT [facility] HISTORICAL RESULTS Hemoglobin 14.2 11.0 - 15.0 g/dl 07/24/2013 2:07 PM T [facility] HISTORICAL RESULTS Hct 39.2 33.0 - 43.0 % 07/24/2013 2:07 PM T [facility] HISTORICAL RESULTS MCV 88.3 80.0 - 97.0 fl 07/24/2013 2:07 PM T [facility] HISTORICAL RESULTS MCH 32.0(H) 27.0 - 31.2 pg 07/24/2013 2:07 PM T [facility] HISTORICAL RESULTS MCHC 36.2(H) 31.8 - 35.4 g/dl 07/24/2013 2:07 PM T [facility] HISTORICAL RESULTS RDW 12.3 11.6 - 14.8 % 07/24/2013 2:07 PM T [facility] HISTORICAL RESULTS Plt Count 248 124 - 400 x10 3/ul 07/24/2013 2:07 PM T [facility] HISTORICAL RESULTS MPV 10.2 7.4 - 10.4 fl 07/24/2013 2:[address] [facility] HISTORICAL RESULTS Differential Method AUTOMATED DIFF --------- -- 07/24/2013 2:[address] [facility] HISTORICAL RESULTS Neut % 61.8 37.0 - 85.0 % 07/24/2013 2:07 PM T [facility] HISTORICAL RESULTS Immature Gran % 0.1 0.0 - 3.0 % 07/24/2013 2:07 PM T [facility] HISTORICAL RESULTS Lymph % 30.9 5.0 - 45.0 % 07/24/2013 2:07 PM T [facility] HISTORICAL RESULTS [place] % 6.2 3.0 - 15.0 % 07/24/2013 2:07 PM T [facility] HISTORICAL RESULTS Eos % 0.6 0.0 - 7.0 % 07/24/2013 2:07 PM T [facility] HISTORICAL RESULTS Baso % 0.4 0.0 - 2.0 % 07/24/2013 2:07 PM T [facility] HISTORICAL RESULTS ABSOLUTE COUNTS ABSOLUTE COUNTS --------- -- 07/24/2013 2:07 PM T [facility] HISTORICAL RESULTS Absolute Neuts (auto) 4.2 1.7 - 8.7 x10 3/ul 07/24/2013 2:[address] [facility] HISTORICAL RESULTS Immature Gran # 0.0 0.0 - 0.3 x10 3/ul 07/24/2013 2:07 PM T [facility] HISTORICAL RESULTS Absolute Lymphs (auto) 2.1 0.2 - 4.6 x10 3/ul 07/24/2013 2:07 PM T [facility] HISTORICAL RESULTS Absolute Monos (auto) 0.4 0.1 - 1.5 x10 3/ul 07/24/2013 2:07 PM T [facility] HISTORICAL RESULTS Absolute Eos (auto) 0.0 0.0 - 0.7 x10 3/ul 07/24/2013 2:07 PM T [facility] HISTORICAL RESULTS Absolute Basos (auto) 0.0 0.0 - 0.2 x10 3/ul 07/24/2013 2:07 PM T [facility] HISTORICAL RESULTS 07/24/2013 1:59 PM CDT 07/24/2013 2:01 PM CDT us Juli Montes MD LAB BLOOD ORDERABLES Final Resul t [facility] HISTORICAL RESULTS * CT Abdomen Pelvis W Contrast (07/24/2013 12:47 PM CDT) Anatomical Region Laterality Modality Body N/A Computed Tomogra phy 07/24/2013 12:4 7 PM CDT Impressions 07/24/2013 1:31 PM CDT ??Acute uncomplicated appendicitis. Findings discussed with Madeleine Mcconnell PA-C, at 13:25 on 07/24/2013. THIS IS AN ELECTRONICALLY VERIFIED REPORT 07/24/2013 1:27 PM: ??Mohan Lassiter M.D. Mohan Lassiter M.D. NH:wy 01:27 PM 01:27 PM [facility] [EOD] Narrative 07/24/2013 1:31 PM CDT EXAMINATION: ??CT ABDOMEN and PELVIS with IV contrast HISTORY: ??Right lower quadrant abdominal pain. TECHNIQUE: ??CT of the abdomen and pelvis was performed with IV contrast. ??100 mL Omnipaque 350 was instilled intravenously through the left antecubital IV without complications. Oral contrast was administered. ABDOMEN: ??No comparison. ??Lung bases are clear. ??No pleural effusion. ??Liver, gallbladder, pancreas, spleen and adrenals are unremarkable. ??Both kidneys enhance symmetrically without hydronephrosis or perinephric fat stranding. ?? There is no bowel dilatation. ??There is mild inflammation around the appendix, which is not enlarged. ??There is no ascites or pneumoperitoneum. ??No abdominal lymphadenopathy. PELVIS: ??Urinary bladder, uterus and adnexa are unremarkable. ??There is no pelvic lymphadenopathy. ??No acute bony abnormality. ??Thoracolumbar scoliosis is noted. Procedure Note Provider, MD Jose - 10/02/2020 EXAMINATION: CT ABDOMEN and PELVIS with IV contrast HISTORY: Right lower quadrant abdominal pain. TECHNIQUE: CT of the abdomen and pelvis was performed with IV contrast.100 mL Omnipaque 350 was instilled intravenously through the left antecubitalIV without complications. Oral contrast was administered. ABDOMEN: No comparison. Lung bases are clear. No pleural effusion.Liver, gallbladder, pancreas, spleen and adrenals are unremarkable. Both kidneys enhance symmetrically without hydronephrosis or perinephric fat stranding. There is no bowel dilatation. There is mild inflammation around theappendix, which is not enlarged. There is no ascites or pneumoperitoneum. Noabdominal lymphadenopathy. PELVIS: Urinary bladder, uterus and adnexa are unremarkable. There is no pelvic lymphadenopathy. No acute bony abnormality. Thoracolumbarscoliosis is noted. IMPRESSION: Acute uncomplicated appendicitis. Findings discussed with Madeleine Mcconnell PA-C, at 13:25 on 07/24/2013. THIS IS AN ELECTRONICALLY VERIFIED REPORT 07/24/2013 1:27 PM: Mohan Lassiter M.D. Mohan Lassiter M.D. NH:roberto carlos 01:27 PM 01:27 PM [facility] [EOD] Juli Montes MD IMG CT PROCEDURES Final Result documented in this encounter Visit Diagnoses Diagnosis Acute appendicitis Acute appendicitis without mention of peritonitis Other specified retention of urine documented in this encounter
--- OUTSIDE RECORDS SUMMARY | 2024-05-31 00:15 | XMS_ITS | Encounter Summary ---
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 Role Phone Unavailable Primary Care Provider Unavailabl e Encounter Details Date Type Department Care Team (Late st Contact Info) Description 07/21/2019 11:40 AM SENIOR CARE ASSISTANT - 07/21/2019 1:50 PM SENIOR CARE ASSISTANT Hospital Encounter [address] [address] Unknown, NotiBarbara Unger PA [address] [facility] [address] [place] [id number] Discharge Disposition: Discharge to home or self care Social History Tobacco Use Types Packs/Day Years Used Date Smoking Tobacco: Never Assessed Comments Unknown Sex and Gender Information Value Date Recorded Sex Assigned at Not on file 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 Gender Identity Not on file Sexual Orientation Not on file documented as of this encounter Last Filed Vital Signs Vital Sign Reading Time Taken Comments Blood Pressure 118/86 07/21/2019 11:42 AM SENIOR CARE ASSISTANT Pulse 78 07/21/2019 11:42 AM SENIOR CARE ASSISTANT Temperature 37.7 ??C (99.9 ??F) 07/21/2019 11:[address] Respiratory Rate - - Oxygen Saturation 98% 07/21/2019 11:42 AM SENIOR CARE ASSISTANT Inhaled Oxygen Concentration - - Weight - - Height 160 cm (5' 3 ) 07/21/2019 11:42 AM SENIOR CARE ASSISTANT Body Mass Index - - documented in this encounter Discharge Disposition Disposition Code Departure Means Destination Discharge to home or self care documented in this encounter Plan of Treatment Not on file documented as of this encounter Procedures Procedure Name Priority Date/Time Associated Diagnosis Comments XR FOOT LEFT 3 OR MORE VIEWS 07/21/2019 12:00 AM SENIOR CARE ASSISTANT XR ANKLE LEFT 3 OR MORE VIEWS 07/21/2019 12:00 AM SENIOR CARE ASSISTANT documented in this encounter Results * XR Foot Left 3 or More Views (07/21/2019 12:00 AM SENIOR CARE ASSISTANT) Anatomical Region Laterality Modality Lower Extremities, Foot Left Radiogra [facility] Imaging 07/21/2019 12:3 0 PM SENIOR CARE ASSISTANT Narrative 07/21/2019 12:32 PM SENIOR CARE ASSISTANT Patient Name: BECCA HERRERA ?Ordering Dr: Barbara Packer PA-C ?? D.O.B: 1995 ? Exam Date: 07/21/19 ?? 0000 ?? Age: 23 ?Sex: Female ? MR#: [id number] ?? Loc: ? RADIOLOGY REPORT ?? Order #[id number] ?? Radiology ? Foot LT 3 View Min ? Signed ?? EXAM DESCRIPTION: ??Foot LT 3 View Min ? REASON FOR STUDY: ??Patient fell on foot and ankle yesterday, pain on lateral ?? side x 1 day ? TECHNIQUE: ??AP, lateral and oblique radiographic views acquired of the left ?? foot. ? COMPARISON: ??None ? FINDINGS: ? BONES/JOINTS: No acute fracture, malalignment or osseous abnormalities.Joint ?? spaces are maintained. ? SOFT TISSUES: Unremarkable. ? OTHER: No other significant finding. ? IMPRESSION: ??No acute bony abnormality in the left foot. ? THIS IS AN ELECTRONICALLY VERIFIED FINAL REPORT ?? 07/21/2019 12:32 PM - Electronically signed by Donald Hatfield M.D. ?? Donald Hatfield M.D. ? RB ?? D: ??07/21/2019 12:32 PM ?? T: ? Report ID: [id number] ?? Reading Location: ??[id number] ? REPORT ELECTRONICALLY SIGNED IN OTHER VENDOR SYSTEM ?? Resulting Agency Comment E Procedure Note Donald Hatfield MD - 07/21/2019 Patient Name: BECCA HERRERA Dr: Barbara Packer PA-C, D.O.B: 1995 Exam Date: 07/21/19 0000 Age: 23 Sex: Female MR#: [id number] Loc: RADIOLOGY REPORT Order #[id number] Radiology Foot LT 3 View Min Signed EXAM DESCRIPTION: Foot LT 3 View Min REASON FOR STUDY: Patient fell on foot and ankle yesterday, pain onlateral side x 1 day TECHNIQUE: AP, lateral and oblique radiographic views acquired of theleft foot. COMPARISON: None FINDINGS: BONES/JOINTS: No acute fracture, malalignment or osseousabnormalities.Joint spaces are maintained. SOFT TISSUES: Unremarkable. OTHER: No other significant finding. IMPRESSION: No acute bony abnormality in the left foot. THIS IS AN ELECTRONICALLY VERIFIED FINAL REPORT 07/21/2019 12:32 PM - Electronically signed by Donald REESE T: Report ID: [id number] Reading Location: [place] [id number] REPORT ELECTRONICALLY SIGNED IN OTHER VENDOR SYSTEM us Barbara SHEARER IMG XR PROCEDURES Final Result * XR Ankle Left 3 or More Views (07/21/2019 12:00 AM SENIOR CARE ASSISTANT) Anatomical Region Laterality Modality Lower Extremities, Ankle Left Radiogr aphic Imaging 07/21/2019 12:2 8 PM SENIOR CARE ASSISTANT Narrative 07/21/2019 12:30 PM SENIOR CARE ASSISTANT Patient Name: BECCA HERRERA ?Ordering Dr: Barbara Packer PA-C ?? D.O.B: 1995 ? Exam Date: 07/21/19 ?? 0000 ?? Age: 23 ?Sex: Female ? MR#: [id number] ?? Loc: ? RADIOLOGY REPORT ?? Order #[id number] ?? Radiology ? Ankle LT 3 View Min ? Signed ?? EXAM DESCRIPTION: ?? Ankle LT 3 View Min ? REASON FOR STUDY: ??Pt fell on ankle and foot x 1 day, pain on lateral side ? TECHNIQUE: ??AP, lateral, and oblique radiographic views acquired of the left ?? ankle. ? COMPARISON: ??None ? FINDINGS: ? BONES/JOINTS: No acute fracture, malalignment or osseous abnormalities.Joint ?? spaces are maintained. ? SOFT TISSUES: Lateral soft tissue swelling. ? OTHER: No other significant finding. ? IMPRESSION: ? 1. ??No acute bony abnormality in left ankle. ??Mortise joint well maintained. ? 2. ??Lateral soft tissue swelling. ? THIS IS AN ELECTRONICALLY VERIFIED FINAL REPORT ?? 07/21/2019 12:30 PM - Electronically signed by Donald Hatfield M.D. ?? Donald Hatfield M.D. ? RB ?? D: ??07/21/2019 12:30 PM ?? T: ? Report ID: [id number] ?? Reading Location: ??[id number] ? REPORT ELECTRONICALLY SIGNED IN OTHER VENDOR SYSTEM ?? Resulting Agency Comment E Procedure Note Donald Hatfield MD - 07/21/2019 Patient Name: BECCA HERRERA Dr: Barbara Packer PA-COJovannyB: 1995 Exam Date: 07/21/19 0000 Age: 23 Sex: Female MR#: [id number] Loc: RADIOLOGY REPORT Order #[id number] Radiology Ankle LT 3 View Min Signed EXAM DESCRIPTION: Ankle LT 3 View Min REASON FOR STUDY: Pt fell on ankle and foot x 1 day, pain on lateralside TECHNIQUE: AP, lateral, and oblique radiographic views acquired of theleft ankle. COMPARISON: None FINDINGS: BONES/JOINTS: No acute fracture, malalignment or osseousabnormalities.Joint spaces are maintained. SOFT TISSUES: Lateral soft tissue swelling. OTHER: No other significant finding. IMPRESSION: 1. No acute bony abnormality in left ankle. Mortise joint wellmaintained. 2. Lateral soft tissue swelling. THIS IS AN ELECTRONICALLY VERIFIED FINAL REPORT 07/21/2019 12:30 PM - Electronically signed by Donald REESE T: Report ID: [id number] Reading Location: [place] [address] REPORT ELECTRONICALLY SIGNED IN OTHER VENDOR SYSTEM Barbara SHEARER IMG XR PROCEDURES Final Result documented in this encounter Visit Diagnoses Not on filedocumented in this encounter
--- OUTSIDE RECORDS SUMMARY | 2024-05-31 00:15 | XMS_ITS | Clinical Summary ---
Author Organization [facility] Address [address] [place] [address] Care Team Providers Care Principal Web Developer Name Role Phone No, Physician Primary Care Provider [phone] Allergies No known active allergies Medications ketorolac [...] needed for wheezing 6.7 g 02/27/2024 Active Encounters Date Type Department Care Team Description 04/23/2024 1:13 PM CONTROL ROOM TECHNICIAN - 04/23/2024 2:19 PM [facility] Emergency [facility] OB Emergency Department [address] [place] [address] Natalya Pratt MD Back pain affecting in third trimester (Primary Dx); 34 weeks gestation of Discharge Disposition: Discharge to home or self care from Last 3 Months Social History Tobacco Use Types Packs/Day Years [...] often do you attend chur ch or confucianist services? Patient declined 04/23/2024 Do you belong to any clubs o r organizations such as faith groups, unions, fraternal or athletic groups, or [...] any time in the past 12 m [facility], were you homeless or living in a fci (including now)? No 04/23/2024 Personal Safety Answer Date Recorded Have you ever been in or are you currently in a harmful physical or emotional relationship or is someone making you feel afraid or unsafe? Denies 02/27/2024 Estimated Date of Delivery Comme nts Yes 05/31/2024 Sex and Gender Information Value Date Recorded Sex Assigned at Not on file Legal Sex Female 6:10 PM CONTROL ROOM TECHNICIAN Gender Identity Not on file Sexual Orientation Not on file Obstetrics History Para Term AB IAB SAB Ectopic Multiple Livin g Live Births 1 Date Outcome GA Total Labor Labor/2nd/3rd Weight Sex Type Anes PTL Tiera A1 A5 Name Clin Current Last Filed Vital Signs Vital Sign Reading Time Taken Comments Blood Pressure 105/66 04/23/2024 1:21 PM CONTROL ROOM TECHNICIAN Pulse 74 04/23/2024 1:25 PM CONTROL ROOM TECHNICIAN Temperature 36.4 ??C (97.6 ??F) 04/23/2024 1:19 PM CS T Respiratory Rate 18 04/23/2024 1:19 PM CONTROL ROOM TECHNICIAN Oxygen Saturation 97% 04/23/2024 1:25 PM CONTROL ROOM TECHNICIAN Inhaled Oxygen Concentration - - Weight 90.8 kg (200 lb 2.8 oz) 02/27/2024 3:03 P M CDT Height 160 cm (5' 3 ) 01/02/2022 10:17 AM CDT Body Mass Index 35.46 01/02/2022 10:17 AM CDT Plan of Treatment Health Maintenance Due Date Last Done Comments Cervical Cancer Screening 1994 Depression Screening 1994 Hepatitis C Screening 1994 DTaP/Tdap/Td Vaccine (1 - Tdap) 2005 Varicella Vaccines (1 of 2 - 13+ 2-dose series) 09/04/2007 Hepatitis B Screening 2012 Regular Well Visit/Exam 18-64 2012 Covid-19 Vaccine (3 - 2023-2 5 season) 2024 08/30/2020, 08/02/2020 Influenza Vaccine (#1) 2024 HPV Vaccines Aged Out No longer eligi ble based on patient's age to complete this topic Pneumococcal vaccine <65 Aged Out No longer eligible based on patient's age to complete this topic Procedures Procedure Name Priority Date/Time Associated Diagnosis Comments LIPASE STAT 04/23/2024 1:29 PM CONTROL ROOM TECHNICIAN EGFR STAT 04/23/2024 1:29 PM CONTROL ROOM TECHNICIAN DIFFERENTIAL AUTO STAT 04/23/2024 1:2 9 PM CONTROL ROOM TECHNICIAN COMPREHENSIVE METABOLIC PANEL STAT 04/23/2024 1:29 PM CONTROL ROOM TECHNICIAN CBC WITH AUTO DIFFERENTIAL STAT 04/23/2024 1:29 PM CONTROL ROOM TECHNICIAN URINALYSIS AND REFLEX TO MICROSCOPIC AND CULTURE STAT 04/23/2024 1:29 PM CONTROL ROOM TECHNICIAN from Last 3 Months Results * eGFR (04/23/2024 1:29 PM CONTROL ROOM TECHNICIAN) eGFR >90 >=60 mL/min/1. 73 m2 Comment: [...] of Race in Diagnosing Kidney Disease, JASN 202). The CKD-EPI equation should not be used for patients with unstable renal function and has not been validated in children and those over 70. Current interpretive data was last reviewed 2021. Testing performed by: [facility], [address] [place] [address], [place]., [address] Blood 04/23/2024 1:29 PM CONTROL ROOM TECHNICIAN 04/23/2024 1:33 PM CONTROL ROOM TECHNICIAN us Horace Rainey MD LAB BLOOD ORDERABLES Final Result JAIR [address] [facility] Department [place] [address] * Differential, auto (04/23/2024 1:29 PM CONTROL ROOM TECHNICIAN) Neutrophil abs 5.9 1.5 - 6.5 K/cumm Comment:Testing performed by : [address] [address] Imm gran abs 0.1 0.0 - 0.1 K/cumm JAIR Comment:Testing performed by : [address] [address] Lymphocyte abs 2.5 0.8 - 3.3 K/cumm JAIR Comment:Testing performed by : [address] [address] Monocyte abs 0.6 0.2 - 0.8 K/cumm JAIR Comment:Testing performed by : [address] [address] Eosinophil abs 0.1 0.0 - 0.5 K/cumm JAIR Comment:Testing performed by : [address] [address] Basophil abs 0.0 0.0 - 0.1 K/cumm JAIR Comment:Testing performed by : [address] [address] Neutrophil pct 64.3 % JAIR Comment: Interpretive Data Percent cell count reference ranges are not reported, since discordance with absolute values may lead to misinterpretation of CBC data. Current Interpretive Data was last revised on 2017. Testing performed by: [address] [address] Imm gran pct 0.7 % JAIR Comment: Interpretive Data Percent cell count reference ranges are not reported, since discordance with absolute values may lead to misinterpretation of CBC data. Current Interpretive Data was last revised on 2017. Testing performed by: [address] [address] Lymphocyte pct 27.6 % JAIR Comment: Interpretive Data Percent cell count reference ranges are not reported, since discordance with absolute values may lead to misinterpretation of CBC data. Current Interpretive Data was last revised on 2017. Testing performed by: [address] [address] Monocyte pct 6.2 % JAIR Comment: Interpretive Data Percent cell count reference ranges are not reported, since discordance with absolute values may lead to misinterpretation of CBC data. Current Interpretive Data was last revised on 2017. Testing performed by: [address] [address] Eosinophil pct 0.9 % JAIR Comment: Interpretive Data Percent cell count reference ranges are not reported, since discordance with absolute values may lead to misinterpretation of CBC data. Current Interpretive Data was last revised on 2017. Testing performed by: [address] [address] Basophil pct 0.3 % JAIR Comment: Interpretive Data Percent cell count reference ranges are not reported, since discordance with absolute values may lead to misinterpretation of CBC data. Current Interpretive Data was last revised on 2017. Testing performed by: [address] [address] Blood 04/23/2024 1:29 PM CONTROL ROOM TECHNICIAN 04/23/2024 1:33 PM CONTROL ROOM TECHNICIAN us Horace Rainey MD LAB BLOOD ORDERABLES Final Result [facility] [address] [facility] Department [place] [address] * Urinalysis reflex to microscopic and culture Urine (04/23/2024 1:29 PM CONTROL ROOM TECHNICIAN) Color, ur Straw Yellow Comment:Testing performed by : [address] [address] Clarity, ur Clear Clear JAIR Comment:Testing performed by : [address] [place]., [address] Specific gravity, ur 1.004 1.003 - 1.030 JAIR Comment:Testing performed by : [address] [address] pH, urine 7.0 JAIR Comment: Interpretive Data ? Urine pH is affected by diet, medications, systemic acid-base disturbances, and renal tubular function. ??pH may affect urinary stone formation. ??For example, urine pH below 6.0 may help reduce the tendency for calcium phosphate stones and pH greater than 6.0 may reduce the tendency for uric acid stone formation. Source: [facility] [employer] Current Interpretive Data was last revised on 2017 Testing performed by: [address] [address] Protein, ur ql Negative Negative JAIR Comment:Testing performed by : [address] [address] Glucose, ur ql Negative Negative JAIR Comment:Testing performed by : [address] [address] Ketones, ur Negative Negative JAIR Comment:Testing performed by : [address] [address] Bilirubin, ur Negative Negative JAIR Comment:Testing performed by : [address] [address] Blood, ur Negative Negative JAIR Comment:Testing performed by : [address] [address] Urobilinogen, ur <2.0 <2.0 mg/dL JAIR Comment:Testing performed by : [address] [address] Nitrite, ur Negative Negative JAIR Comment:Testing performed by : [address] [address] Leukocyte esterase, ur Negative Negative JAIR Comment:Testing performed by : [address] [address] UA reflex comment Reflex conditions for microscopic UA and culture not met. JAIR Comment:Testing performed by : [address] [address] Urine 04/23/2024 1:29 PM CONTROL ROOM TECHNICIAN 04/23/2024 1:33 PM CONTROL ROOM TECHNICIAN us Horace Rainey MD LAB MICROBIOLOGY - GENERAL ORDERABLES Final Result JAIR [address] [facility] Department [place] [address] * (ABNORMAL) CBC with auto differential (04/23/2024 1:29 PM CONTROL ROOM TECHNICIAN) WBC 9.1 3.8 - 9.9 K/cumm Comment:Testing performed by : [address] [address] Hgb 11.5(L) 11.9 - 15.5 g/dL JAIR Comment:Testing performed by : [address] [address] Hct 32.2(L) 35.6 - 45.5 % JAIR Comment:Testing performed by : [address] [address] Plt 251 150 - 400 K/cumm JAIR Comment:Testing performed by : [address] [address] MPV 9.6 9.1 - 12.3 fL JAIR Comment:Testing performed by : [address] [address] RBC 3.47(L) 3.90 - 5.20 M/cumm JAIR Comment:Testing performed by : [address] [address] MCV 92.8 81.3 - 96.4 fL JAIR Comment:Testing performed by : [address] [address] MCH 33.1 27.1 - 33.3 pg JAIR SANON Comment:Testing performed by : [address] [address] MCHC 35.7 32.3 - 35.7 g/dL JAIR Comment:Testing performed by : [address] [address] RDW CV 13.3 11.1 - 14.9 % JAIR Comment:Testing performed by : [address] [address] RDW SD 45.1 35.7 - 48.1 fL JAIR SANON Comment:Testing performed by : [address] [address] NRBC abs 0.00 0.00 - 0.01 K/cumm JAIR Comment:Testing performed by : [address], [address] Blood 04/23/2024 1:29 PM CONTROL ROOM TECHNICIAN 04/23/2024 1:33 PM CONTROL ROOM TECHNICIAN us Horace Rainey MD LAB BLOOD ORDERABLES Final Result Performing Organization Address [facility] de Phone Number [address] [place] [address] * Lipase (04/23/2024 1:29 PM CONTROL ROOM TECHNICIAN) Pathologist [facility] Lipase 22 10 - 99 Units/L Comment:Testing performed by : [address], [address] Blood 04/23/2024 1:29 PM CONTROL ROOM TECHNICIAN 04/23/2024 1:33 PM CONTROL ROOM TECHNICIAN us Natalya Pratt MD LAB BLOOD ORDERABLES Final Resu lt Performing Organization Address [facility] Co de Phone Number [address] [address] * (ABNORMAL) Comprehensive metabolic panel (04/23/2024 1:29 PM CONTROL ROOM TECHNICIAN) Pathologist [facility] Sodium 137 135 - 145 mmol/L Comment:Testing performed by : [address] [address] Potassium, pl 4.0 3.3 - 4.9 mmol/L JAIR Comment:Testing performed by : [address] [address] Chloride 106 97 - 110 mmol/L JAIR Comment:Testing performed by : [address] [address] CO2 20(L) 22 - 32 mmol/L JAIR Comment:Testing performed by : [address] [address] Anion gap 11 2 - 15 mmol/L JAIR Comment:Testing performed by : [address] [address] BUN 8 6 - 25 mg/dL [facility] Comment:Testing performed by : [address], [place]., [address] Creatinine 0.40(L) 0.60 - 1.10 mg/dL JAIR Comment:Testing performed by : [address] [address] Glucose 97 70 - 199 mg/dL JAIR [...] was last revised 2022. Testing performed by: [address] [address] Calcium 8.8 8.5 - 10.3 mg/dL JAIR Comment:Testing performed by : [address] [address] Bilirubin, total <0.2 0.1 - 1.2 mg/dL JAIR Comment:Testing performed by : [address] [address] Protein, pl 6.0(L) 6.5 - 8.5 g/dL JAIR Comment:Testing performed by : [address] [address] Albumin 3.3(L) 3.5 - 5.0 g/dL JAIR SANON Comment:Testing performed by : [facility], [address] [place] [address]., [address] Alk phos 72 40 - 130 Units/L JAIR SANON Comment:Testing performed by : [facility], [address] [place] [address]., [address] ALT 10 7 - 45 Units/L JAIR SANON Comment:Testing performed by : [address] [address] AST 15 10 - 45 Units/L JAIR Comment:Testing performed by : [facility], [address] [place] [address]., [address] Blood 04/23/2024 1:29 PM CONTROL ROOM TECHNICIAN 04/23/2024 1:33 PM CONTROL ROOM TECHNICIAN us Horace Rainey MD LAB BLOOD ORDERABLES Final Result JAIR [address] [facility] Department [place] [address] from Last 3 Months Insurance [facility] Care Teams Principal Web Developer Relationship Specialty Start Date End Date No, Physician PCP - General 03/19/20
--- OUTSIDE RECORDS SUMMARY | 2024-05-31 00:15 | XMS_ITS | Data Portability ---
Author Organization [facility] RENEE[facility]rianne Address [address] [place] [address] Assessment No assessment recorded. Plan of Treatment Reminders Order Date Submit Date Provider Last Modified By Organization Details Last Modified Time Details Appointments None recorded. Lab None recorded. Referral None recorded. Procedures None recorded. Surgeries None recorded. Imaging None recorded. Medication Orders methylpred nisolone 4 mg tablets in a dose pack 2016 017 [email or web address] Not available 0 10:23:00 azithromyc in 250 mg tablet 2016 017 [email or web address] Not available 0 10:22:53 hydrocodon e 5 mg-acetami nophen 325 mg tablet 2016 017 [email or web address] Not available 0 10:22:56 Medrol (Lane) 4 mg tablets in a dose pack 2019 020 INTERFACE [id number], [address], [place], [address], 0 10:41:05 Patient TargetsNo targets recorded. Patient Instructions Encounter Date Encounter Id Patient Instructions Last Modified By Organization Details Last Modified Time 10/19/2016 [id number] back care and preventing injuries: care instructions Not available 10/19/2016 18:16:04 pleurisy: care instructions Not available 10/19/2016 18:16:04 if not better [email or web address] Not available 18:23:06 09/25/2019 [id number] poison damian, oak, and sumac: care instructions [email or web address] Not available 09/25/2019 10:42:30 Reason for Referral None Reported. 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 Active 2011 Location : None;Sev erity: Moderate ;Progres s: Stable;A dded By: Juli Montes;Add to Current Problems : NO Not Available [facility] 11:11:41 Acute bronchit is 19195036 Completed 201212/09/2012 Location : None;Sev erity: Moderate ;Progres s: Stable;A dded By: Juli Montes;Add to Current Problems : NO Not Available [facility] 11:11:41 Acute maxillar y sinusiti s 21263307 Completed 201507/29/2015 Location : None;Sev erity: Moderate ;Progres s: Stable;A dded By: Juli Montes;Add to Current Problems : YES Not Available [facility] 11:11:41 Acute sinusiti s 30291253 Completed 201212/09/2012 Location : None;Sev erity: Moderate ;Progres s: Stable;A dded By: Rebeca Antunez;Add to Current Problems : NO Not Available [facility] 11:11:41 Tobacco dependen ce syndrome 70591075 Completed 201507/30/2015 Location : None;Sev erity: Moderate ;Progres s: Stable;A dded By: Rachel Martínez;Add to Current Problems : YES Not Available [facility] 11:11:42 Acute pharyngi tis 487301361 Completed 201506/30/2015 Location : None;Sev erity: Moderate ;Progres s: Stable;A dded By: Radha Dumas; Add to Current Problems : YES Not Available [facility] 7 11:11:42 Otogenic otalgia 92984771 Completed 201104/11/2012 Location : None;Sev erity: Moderate ;Progres s: Stable;A dded By: Dominga Wayne i;Diego dd to Current Problems : NO Not Available [facility] 7 11:11:42 Right lower quadrant pain 593767353 Completed 201307/25/2013 Location : None;Sev erity: Moderate ;Progres s: Stable;A dded By: Radha Villeda;Add to Current Problems : NO Not Available [facility] 11:11:42 Diarrhea 13088007 Completed 201307/25/2013 Location : None;Sev erity: Moderate ;Progres s: Stable;A dded By: Radha Villeda;Add to Current Problems : NO Not Available [facility] 7 11:11:42 Nausea and vomiting 80078204 Completed 201307/25/2013 Location : None;Sev erity: Moderate ;Progres s: Stable;A dded By: Radha Villeda;Add to Current Problems : NO Not Available [facility] 7 11:11:42 Acute tonsilli tis 44826398 Completed 201104/21/2012 Location : None;Sev erity: Moderate ;Progres s: Stable;A dded By: Madeleine Mcconnell;Add to Current Problems : NO Not Available [facility] 7 11:11:42 Migraine with aura 8685638 Active 2012 Location : None;Sev erity: Moderate ;Progres s: Stable;A dded By: Madeleine Mcconnell;Add to Current Problems : NO Not Available [facility] 7 11:11:43 Loss of appetite 09606381 Completed 201307/25/2013 Location : None;Sev erity: Moderate ;Progres s: Stable;A dded By: Madeleine Mcconnell;Add to Current Problems : NO Not Available [facility] 7 11:11:43 Low back pain 633720298 Active 2013 Location : None;Sev erity: Moderate ;Progres s: Stable;A dded By: Madeleine Mcconnell;Add to Current Problems : NO Not Available [facility] 7 11:11:43 Inflamma tion of sacroili ac joint 94544585 Completed 201301/18/2014 Location : None;Sev erity: Moderate ;Progres s: Stable;A dded By: Madeleine Mcconnell;Add to Current Problems : NO Not Available [facility] 7 11:11:43 Sciatica 61043809 Completed 201301/18/2014 Location : None;Sev erity: Moderate ;Progres s: Stable;A dded By: Madeleine Mcconnell;Add to Current Problems : NO Not Available [facility] 11:11:43 Acute pharyngi tis 914246690 Completed 201105/13/2012 Location : None;Sev erity: Moderate ;Progres s: Stable;A dded By: Marjan Woodall;Add to Current Problems : NO Not Available [facility] 7 11:11:43 Tubercul osis screenin g Completed 201204/28/2013 Location : None;Sev erity: Moderate ;Progres s: Stable;A dded By: Dominga Wayne i;Diego dd to Current Problems : NO Not Available [facility] 11:11:43 Problem Notes None recorded. Procedures Surgical History Date Name Laterality Status Provider Name and Address Organization Details Recorded Time 07/25/19 14 Appendectomy completed [facility] Mert [facility] 10/19/2016 17:04:35 Tonsillectomy [facility] 18:13:10 Imaging Results None recorded. Procedure Notes None recorded. Medical Equipment None Reported. Allergies No known drug allergies Medications Name Sig Start Date Stop Date Status Note LastModified by Organization Details LastModified Time Augmentin 875 mg-125 mg tablet Take 1 tablet(s) by mouth q12h for 10 days 07/09 completed RxNor m: 18514 4;All ow Subst ituti on: True Not Available Not Available Not Available promethazin e-DM 6.25 mg-15 mg/5 mL oral syrup Take 1-2 tsp every 4-6 hrs as needed for cough 05/20 completed RxNor m: 16380 8;All ow Subst ituti on: True Not Available Not Available Not Available acetaminoph en 325 mg tablet 10/19 completed Not Available Not Available Not Available Zyrtec-D 5 mg-120 mg tablet,exte nded release 1 PO BID PRN 06/28 completed RxNor m: 53584 6;All ow Subst ituti on: True Not Available Not Available Not Available azithromyci n 250 mg tablet Take 2 tablet(s) by mouth on day 1 then 1 tablet every day for the next 4 days. 09/24 completed Not Available Not Available Not Available ibuprofen 800 mg tablet 10/19 completed Not Available Not Available Not Available hydrocodone 5 mg-acetamin ophen 325 mg tablet TAKE 1 TABLET BY MOUTH EVERY 6 HOURS NEEDED FOR PAIN active Not Available Not Available No t Available naproxen 250 mg tablet Take 1 tablet twice a day by oral route. 09/24 completed Not Available Not Available Not Available clotrimazol e 1 % vaginal cream 10/19 completed Not Available Not Available Not Available Biaxin 500 mg tablet Take 1 tablet(s) by mouth q12h for 7 days 04/27 completed RxNor m: 11886 6;All ow Subst ituti on: True Not Available Not Available Not Available Motrin 600 mg tablet Take 1 tablet(s) by mouth q 4 to 6 hr prn 07/28 completed RxNor m: 32501 2;All ow Subst ituti on: True Not Available Not Available Not Available ketorolac 10 mg tablet TAKE 1 TABLET BY MOUTH EVERY 6 HOURS NEEDED FOR PAIN. active Not Available Not Available No t Available DOK 100 mg capsule 10/19 completed Not Available Not Available Not Available hydrocodone 7.5 mg-acetamin ophen 325 mg tablet Take 1 tab po q 8 hours prn 09/24 completed Not Available Not Available Not Available oseltamivir 75 mg capsule TAKE 1 CAPSULE BY MOUTH TWICE A DAY active Not Available Not Available No t Available ranitidine 150 mg tablet 10/19 completed Not Available Not Available Not Available Vitamin B-6 50 mg tablet 10/19 completed Not Available Not Available Not Available cefuroxime axetil 500 mg tablet Take 1 tablet(s) by mouth bid for 10 days 05/09 completed RxNor m: 28620 8;All ow Subst ituti on: True Not Available Not Available Not Available methylpredn isolone 4 mg tablets in a dose pack Take as directed active Not Available Not Available No t Available Flexeril 10 mg tablet 1 tab po tid prn 02/16 completed RxNor m: 68240 0;All ow Subst ituti on: True Not Available Not Available Not Available NuvaRing 0.12 mg-0.015 mg/24 hr vaginal Insert 1 vaginal ring in vagina for 21 days then remove the ring for 1 week. 10/19 completed Not Available Not Available Not Available Relpax 40 mg tablet half tablet as needed for migraine, and repeat in 2 hours once if needed 05/22 completed RxNor m: 83408 4;All ow Subst ituti on: True Not Available Not Available Not Available Multi-DHA 27 mg iron-800 mcg-228 mg capsule 10/19 completed Not Available Not Available Not Available Vitals Date Recorded Body weight Body temperature Provider N castillo and Address Organization Details Last Updated DateTime 09/25/2019 75233.7 g 98.3 [degF] Deja Bonilla [place] [facility] 09/25/2019 10:25:22 Date Recorded Body height Body weight Body mass index (BMI) Body temperature Oxygen saturation Oxygen saturation in Arterial blood by Pulse oximetry Heart rate Systolic blood pressure Diastolic blood pressure Provider Name and Address Organization Details Last Updated DateTime 7 162.56 cm 48786.4 7 g 34.3 kg/m2 97.6 [degF] 97 % 97 % 102 /min 112 mm[Hg] 80 mm[Hg] Dominga Regalado ma [place] - [facility] 7 17:39:16 Social History None recorded. Functional Status None recorded. Mental Status None recorded. Family History Relationship Description Onset Age of this Age Resolved Age Notes LastModified by Organization Details LastModified Time Sister Asthma [email or web address] Not availab le 10/19/2016 17:04:43 Sister History of multiple allergies ssadlowskima Not available 09/2016 17:05:02 Brother History of multiple allergies ssadlowskima Not available 09/2016 17:05:02 Mother History of multiple allergies ssadlowskima Not available 09/2016 17:05:02 Mother Depressive disorder ssadlowskima Not available 09/2016 17:05:09 Medical History Condition Response Allergies Y Gynecological HistoryNo gynecological history recorded. Obstetrics History GPAL:G 1 P 1 0 0 1 Type Value Full Term 1 Living 1 Total 1 Immunizations Vaccine Type Date Status Note Provider Nam e and Address Organization Details Recorded Time Hib (HbOC) 5 completed Not Available [facility] 05/20/2016 05:35:02 Hib (HbOC) 5 completed Not Available [facility] 05/20/2016 05:35:03 Hib (HbOC) 5 completed Not Available [facility] 05/20/2016 05:35:03 Hib (HbOC) 6 completed Not Available [facility] 05/20/2016 05:35:03 Hep B, adolescent or pediatric 5 completed Not Available [facility] 05/20/2016 05:35:03 Hep B, adolescent or pediatric 6 completed Not Available [facility] 05/20/2016 05:35:03 MMR 6 completed Not Available [facility] 05/20/2016 05:35:03 MMR 9 completed Not Available [facility] 05/20/2016 05:35:03 varicella 6 completed Not Available [facility] 05/20/2016 05:35:03 Hep A, ped/adol, 2 dose 2 completed Not Available [facility] 05/20/2016 05:35:04 Hep A, ped/adol, 2 dose 4 completed Not Available [facility] 05/20/2016 05:35:04 IPV 0 completed Not Available [facility] 05/20/2016 05:35:04 MMR 0 completed Not Available [facility] 05/20/2016 05:35:04 Influenza, split virus, trivalent, preservative 3 completed Not Available [facility] 05/20/2016 05:35:04 HPV, quadrivalent 8 completed Not Available [facility] 05/20/2016 05:35:04 HPV, quadrivalent 8 completed Not Available [facility] 05/20/2016 05:35:05 HPV, quadrivalent 9 completed Not Available [facility] 05/20/2016 05:35:05 varicella 9 completed Not Available [facility] 05/20/2016 05:35:05 DTP 5 completed Not Available [facility] 05/20/2016 05:35:05 Hep B, adolescent or pediatric 5 completed Not Available [facility] 05/20/2016 05:35:06 DTP 5 completed Not Available [facility] 05/20/2016 05:35:06 DTP 6 completed Not Available [facility] 05/20/2016 05:35:06 OPV 5 completed Not Available [facility] 05/20/2016 05:35:06 DTP 0 completed Not Available [facility] 05/20/2016 05:35:07 OPV 5 completed Not Available [facility] 05/20/2016 05:35:07 DTP 5 completed Not Available [facility] 05/20/2016 05:35:07 OPV 5 completed Not Available [facility] 05/20/2016 05:35:07 TST-PPD intradermal 3 completed Not Available [facility] 06/17/2019 02:11:39 Past Encounters Encounter ID Performer Location Encounter Start Date Encounter Closed Date Diagnosis/Indication Diagnosis SNOMED-CT Code Diagnosis ICD10 Code Diagnosis Note [id number] Juli Montes MD [facility] [address] [place] [address] 10/19/2016 16:58:21 10/20/2016 15:28:17 Low back pain 151406166 M54.5 maybe due to lifting of son in car seat-- strain. Will try to limit lifting as possible Pleurisy 660276876 R09.1 pt ed adn to get records from [facility] for review [id number] REN Bustillos [facility] [address] [place] [address] 09/25/2019 10:05:56 09/25/2019 13:02:36 Contact dermatitis caused by urushiol from [place] [facility] damian 390257869 L25.5 cont with antihistam ine and use caladryl to help dry Health Concerns Section Related Observation LastModified by Organization Detai ls LastModified Time None Recorded Concern Status LastModified by Organization Details LastModified Time None Recorded Advance Directives Directive None Recorded Payers Encounter Date Sequence Insurance Name Policy Number Policy Urias Covered Member ID Urias Member ID Guarantor Name 10/19/2016 1 [employer] [id number] Yvette Daughertyclifton [id number] Alley Powell 09/25/2019 1 [facility] [id number] Yvette Frank [id number] Alley Powell Notes Date Note Type Note Provider Name and Address Organization Details Recorded Time 10/19/2016 text/html Back PainReporte d bypatient.Location:l eft side, radiates to the shoulder Quality:sharp; stabbing Severity:worsening;s evere (8-10);interference with sleep Onset/Timing:Pain started when she was . Alleviating Factors:Hydrocodone and naproxen, but still has pain on the medication. Aggravating Factors:movement/pos itioning; Deep inhalation. Associated Symptoms:no fever; no weak limbs; no numbness of the legs/feet; no tinglingNotes:Went to ER 2 days ago at [place], [place]. Chest x-ray and urine was negative. she reports she had a work up at [facility]-- had lab testing, CXR and all was negative . She has an infant son--born [birth year],. She is taking care of him by herself at this time due to in [place]. Juli Montes MD Attn: [address] [place], [address], [facility] 10/19/2016 18:24:22 09/25/2019 text/html Rash/Skin LesionReported bypatient.Location:f ananda; back; legs; whole body Quality:itchy;painfu l;red;multiple;incre asing in size Severity:moderate; worsening Duration:has noted for <1 week Onset/Timing:abrupt onset; recurring; seasonal Alleviating Factors:nothing gives relief; nothing otc has worked, Tried dermaphore and melaphore. Associated Symptoms:no fever; no cold symptoms; no nausea; no vomiting; no diarrhea; no urinary symptoms; no chills; no fatigue; no change in weight Treatment History:oral antihistamines Benadryl with improvementNotes:cut ting down a tree last weeks. First started noticing the rash 3 days ago. Getting worse. REN Bustillos Attn: [address] [place], [address], [place] - [facility] 09/25/2019 10:45:30 OBGyn Episode No OBEpisode recorded.
== END 2024-05-25 12:30 | disposition home or self-care (01) | DRG 560 ==
LOC: ANHLDR 05-24 11:34 → ANHOB2 05-24 12:25
PROVIDERS: Admitting Provider Obstetrics & Gynecology Gynecology; Visit Provider Obstetrics & Gynecology Gynecology
DX: O71.82 Other specified trauma to perineum and vulva (principal); Z3A.38 38 weeks gestation of pregnancy; Z37.0 Single live birth
CPT/HCPCS: 36415; 85014; 85018; 85025; 86592; 86703; 86850; 86900; 86901; A9270; G0432; J2405; J2590; J2795; J3010; J7120